=== PATIENT | female | born 1950 | race Caucasian/White ===

== ENCOUNTER 2017-10-29 19:18 | Emergency (ER) | payer OTHER ==
[2017-10-29 19:26] VITALS: BP 123/62; PULSE 79; TEMP 98.8; BMI 45.7
--- NOTE | 2017-10-29 19:46 | PDOC ---
History of Present Illness - General History Source: Patient Exam Limitations: No Limitations - History of Present Illness Initial Comments: 10/29/17 20:21 This is a 66-year-old female who comes in complaining of abdominal pain and vomiting during a bowel prep procedure. Patient is scheduled for colonoscopy tomorrow. In discussion with the patient patient misread her instructions and drank twice as much liquid as she was supposed to. As a result she developed crampy abdominal pain some vomiting. By the time the patient got to the emergency room her abdominal pain and vomiting had resolved and she was asymptomatic. Patient at that point it also had multiple episodes of diarrhea and her stools were clear liquid. Discussed with patient instructions for the rest of the prep and gave her my phone number and told her to call me if she had any concerns or questions. <Annette Duenas I - Last Filed: 10/29/17 20:19> - General History Source: Patient Exam Limitations: No Limitations - History of Present Illness Initial Comments: 10/29/17 20:26 The patient is a 66 year old female with a significant PMH of hypertension who presents to the emergency department with persistent stomach pain and vomiting for 1 day. The patient reports that she is scheduled for a colonoscopy appointment tomorrow morning. She states that she was given some medication to take for her appointment tomorrow. The patient reports that she misread her instructions and drank more of the medication than was directed for her. The patient reports that after drinking the medication she had an onset of stomach pain. She reports associated vomiting and diarrhea. The patient reports having multiple episodes of diarrhea and vomiting prior to arrival to the ED. the patient denies any other symptoms. She denies any chest pain, shortness of breath, headache and dizziness. She denies fever, chills, nausea,constipation or urinary symptoms. The patient denies any other complaints. PAST MEDICAL HISTORY: hypertension PAST SURGICAL HISTORY: no significant history FAMILY HISTORY: no pertinent history SOCIAL HISTORY: Pt lives with family and is employed. MEDICATIONS: reviewed ALLERGIES: As per nursing notes General: No fevers or chills, no weakness, no weight loss HEENT: No change in vision. No sore throat,. No ear pain CardioVascular: No chest pain or shortness of breath Respiratory:No cough, or wheezing. Gastrointestinal: (+)vomiting, diarrhea,stomach pain . No nausea, or constipation, No rectal bleeding Genitourinary: No dysuria, hematuria, or frequency Musculoskeletal: No joint or muscle pain or swelling Neurologic: No headache, vertigo, dizziness or loss of consciousness Psychiatric: nor depression Skin: No rashes or easy bruising Endocrine: no increased thirst or abnormal weight change Allergic: no skin or latex allergy All other systems reviewed and normal GENERAL: The patient is awake, alert, and fully oriented, in no acute distress. HEAD: Normal with no signs of trauma. EYES: Pupils equal, round and reactive to light, extraocular movements intact, sclera anicteric, conjunctiva clear. EXTREMITIES: Normal range of motion, no edema. NEUROLOGICAL: Normal speech, normal gait. PSYCH: Normal mood, normal affect. SKIN: Warm, Dry, normal turgor, no rashes or lesions noted. <Mari De - Last Filed: 10/29/17 20:27> - General Stated Complaint: abd pain Time Seen by Provider: 10/29/17 19:26 Past History - Past Medical History COPD: No HTN: Yes Hypercholesterolemia: Yes - Surgical History Cholecystectomy: Yes - Suicide/Smoking/Psychosocial Hx Smoking History: Never smoked Have you smoked in the past 12 months: No Number of Cigarettes Smoked Daily: 0 Information on smoking cessation initiated: No Hx Alcohol Use: No Drug/Substance Use Hx: No Substance Use Type: None <Annette Duenas I - Last Filed: 10/29/17 20:19> <Mari De - Last Filed: 10/29/17 20:27> - Past Medical History Allergies/Adverse Reactions: Allergies Allergy/AdvReac Type Severity Reaction Status Date / Time No Known Allergies Allergy Verified 12/04/15 12:09 Home Medications: Ambulatory Orders Atenolol [Tenormin -] 50 mg PO DAILY #30 tablet 12/04/15 Atorvastatin Ca [Lipitor] 20 mg PO HS 10/29/17 Ibuprofen 800 mg PO PRN 10/29/17 Omeprazole 40 mg PO DAILY 10/29/17 Valacyclovir HCl [Valtrex -] 1,000 mg PO TID 10/29/17 *Physical Exam - Vital Signs Last Vital Signs Temp Pulse Resp BP Pulse Ox 98.8 F 79 14 123/62 95 10/29/17 19:20 10/29/17 19:20 10/29/17 19:20 10/29/17 19:20 10/29/17 19:20 <Annette Duenas I - Last Filed: 10/29/17 20:19> - Vital Signs Last Vital Signs Temp Pulse Resp BP Pulse Ox 98.8 F 79 14 123/62 95 10/29/17 19:20 10/29/17 19:20 10/29/17 19:20 10/29/17 19:20 10/29/17 19:20 <Mari De - Last Filed: 10/29/17 20:27> *DC/Admit/Observation/Transfer - Discharge Dispostion Decision to Admit order: No <Annette Duenas I - Last Filed: 10/29/17 20:19> - Attestations Scribe Attestion: 10/29/17 20:27 Documentation prepared by Mari De, acting as medical doctor md for Annette Duenas MD. <Mari De - Last Filed: 10/29/17 20:27> Diagnosis at time of Disposition: Abdominal pain, vomiting, and diarrhea - Discharge Dispostion Disposition: HOME Condition at time of disposition: Good - Patient Instructions Additional Instructions: Clear liquids only until midnight tonight at midnight you should he making lites urine. Nothing more to drink after midnight. You may notice that during the night you have some additional clear diarrhea this is normal however it should not be associated with anything more than mild cramping and no vomiting. Tomorrow morning do the 2 fleets enemas as directed at 9:30 in the morning. And go to your colonoscopy at the time you're supposed to go. I will be here all night if you have any additional questions or concerns feel free to call me at [phone].
== END 2017-10-29 20:20 | disposition home or self-care (01) ==
LOC: FER 19:18
DX: R10.9 Unspecified abdominal pain (principal); R11.10 Vomiting, unspecified; R19.7 Diarrhea, unspecified; I10 Essential (primary) hypertension; E78.00 Pure hypercholesterolemia, unspecified
CPT/HCPCS: 99282-25

== ENCOUNTER 2018-02-07 12:38 | Emergency (ER) | payer OTHER ==
--- NOTE | 2018-02-07 12:44 | PDOC ---
History of Present Illness - General Chief Complaint: Respiratory Stated Complaint: COUGH Time Seen by Provider: 02/07/18 12:41 - History of Present Illness Initial Comments: 02/07/18 12:57 67yo female with hx of HTN on atenolol presents to the ED for 2 weeks of cough. Pt saw her PMD - Dr. Jacob Natarajan, and was dx with bronchitis and started on amxoxicillin. Pt states she still has the cough, productive yellow sputum. Pt states the cough is keeping her up at night. Pt was also given an albuterol inhaler, which she did not use at home until today - gave herself 1 puff without relief of the cough. Pt denies f/c. No rhinorrhea or sore throat. CP only when coughing. No sob. No abd pain. No n/v/d. NO dysuria. No other complaints. Still has amoxicillin left. PMhx: HTN PShx: kevin Meds: Atenolol All: IV contrast Past History - Past Medical History Allergies/Adverse Reactions: Allergies Allergy/AdvReac Type Severity Reaction Status Date / Time Iodinated Contrast- Oral and Allergy Verified 02/07/18 13:19 IV Dye CONTRAST DYE Allergy Uncoded 02/07/18 12:39 Home Medications: Ambulatory Orders Atenolol [Tenormin -] 50 mg PO DAILY #30 tablet 12/04/15 Omeprazole 40 mg PO DAILY 10/29/17 Amoxicillin - [Amoxicillin 500mg Capsule -] 500 mg PO BID 02/07/18 Benzonatate [Tessalon Pearls -] 100 mg PO TID PRN #21 capsule 02/07/18 Inhaler, Assist Devices [Space Chamber Plus] 1 each MC QID PRN #1 spacer Prednisone [Deltasone] 40 mg PO DAILY #8 tablet 02/07/18 COPD: No HTN: Yes Hypercholesterolemia: Yes - Surgical History Cholecystectomy: Yes - Suicide/Smoking/Psychosocial Hx Smoking History: Never smoked Have you smoked in the past 12 months: No Number of Cigarettes Smoked Daily: 0 Hx Alcohol Use: No Drug/Substance Use Hx: No Substance Use Type: None Review of Systems - Review of Systems Able to Perform ROS?: Yes Is the patient limited Malaysian proficient: No Constitutional: No: Chills, Fever HEENTM: No: Nose Pain, Nose Congestion, Throat Pain, Throat Swelling Respiratory: Yes: Cough, Productive cough. No: Shortness of Breath, Wheezing Cardiac (ROS): Yes: Chest Pain (only with the cough). No: Irregular Heart Rate , Palpitations ABD/GI: No: Diarrhea, Nausea, Vomiting, Abdominal cramping : No: Burning Musculoskeletal: No: Back Pain Integumentary: No: Rash Neurological: No: Headache, Numbness All Other Systems: Reviewed and Negative *Physical Exam - Vital Signs 02/07/18 13:04 Selected Entries 02/07/18 12:39 Temperature 100.1 F H Pulse Rate 92 H Respiratory 20 Rate Respiratory Normal Depth Respiratory Non-Labored Effort Blood Pressure 146/82 Blood Pressure 103 Mean O2 Sat by Pulse 96 Oximetry (%) Oxygen Delivery Room Air Method Weight 90.718 kg - Physical Exam General Appearance: Yes: Nourished, Appropriately Dressed, Other (dry bronchospastic coughing) HEENT: positive: EOMI, Normal ENT Inspection, Pharynx Normal. negative: Pharyngeal Erythema, Tonsillar Exudate, Tonsillar Erythema, Nasal Congestion, Rhinorrhea, TM Bulging, TM Dull, TM Erythema Neck: positive: Trachea midline, Supple. negative: Tender, Rigid, Stridor Respiratory/Chest: positive: Decreased Breath Sounds. negative: Chest Tender, Crackles, Rhonchi, Wheezing Cardiovascular: positive: Regular Rhythm, Regular Rate, S1, S2. negative: Edema Gastrointestinal/Abdominal: positive: Normal Bowel Sounds, Soft. negative: Guarding, Rebound, Tenderness Musculoskeletal: positive: Normal Inspection. negative: CVA Tenderness Extremity: positive: Normal Capillary Refill, Normal Inspection Integumentary: positive: Normal Color, Dry, Warm Neurologic: positive: nurse discharge planner II-XII NML intact, Fully Oriented, Motor Strength 5/5 , Other (ambulates with a steady gait) Heart Score/ECG Review - ECG Intrepretation Comment:: 02/07/18 13:53 sinus tach at 105, nl axis, nl interval, t wave ivnersions III which are nonspecific Medical Decision Making - Medical Decision Making 02/07/18 13:05 a/p: 67yo female with cough x 2 weeks -no coarse bs on exam, however still with cough despite abx -will obtain cxr -low grade temp, will give tylenol -diminished bs - suspect RAD, will give neb and steroids -will monitor and reassess 02/07/18 13:32 no pna on cxr re-eval: lungs with soft end expiratory wheezing will give another breathing treatment pt does state she feels better 02/07/18 14:00 pt feeling much better lungs cta b/l discussed d/c to home stable for d/c to home sinus tach on ekg but after 2 neb treatments discussed how to take all meds along with space chamber for albuterol pump answered all quetsions disussed follow up with DR. Natarajan this week for re-eval *DC/Admit/Observation/Transfer Diagnosis at time of Disposition: Bronchospastic airway disease - Discharge Dispostion Disposition: HOME Condition at time of disposition: Stable Decision to Admit order: No - Prescriptions Prescriptions: Benzonatate [Tessalon Pearls -] 100 mg PO TID PRN #21 capsule PRN Reason: Cough Inhaler, Assist Devices [Space Chamber Plus] 1 each MC QID PRN #1 spacer PRN Reason: Shortness Of Breath Prednisone [Deltasone] 40 mg PO DAILY #8 tablet - Referrals Referrals: Jacob Natarajan MD [Staff Physician] - - Patient Instructions Printed Discharge Instructions: DI for Cough -- Adult Additional Instructions: Please continue to take your antibiotics to completion. Please make an appointment to see your PMD this week for a follow up visit. Please take the steroids and cough medicine as prescribed. Please drink plenty of fluids when taking all medications. Please return to the ED with any further concerns or complaints. - Post Discharge Activity - Attestations Physician Attestion: 02/07/18 13:37 I, Dr. Pastora Hutchison, DO, attest that this document has been prepared under my direction and personally reviewed by me in its entirety. I further attest, that it accurately reflects all work, treatment, procedures and medical decision -making performed by me.
[2018-02-07 12:49] VITALS: BP 146/82; PULSE 92; TEMP 100.1; BMI 39.0
[2018-02-07] MEDS ORDERED: ALBUTEROL SO4 2.5/IPRATROPIUM 0.5 INH SOL 3 ML VIAL.NEB. NEB ONE ×3 (12:53→13:33)
[2018-02-07] MEDS ORDERED: predniSONE 20 MG TABLET (UD) PO ONE (12:54)
[2018-02-07] MEDS ORDERED: ACETAMINOPHEN 500 MG TABLET (FP) PO ONE (13:09)
--- NOTE | 2018-02-07 18:46 | EKG ---
Test Reason : Blood Pressure : / mmHG Vent. Rate : 105 BPM Atrial Rate : 105 BPM P-R Int : 142 ms QRS Dur : 076 ms QT Int : 350 ms P-R-T Axes : 034 -29 024 degrees QTc Int : 462 ms SINUS TACHYCARDIA NONSPECIFIC ST AND T WAVE ABNORMALITY ABNORMAL ECG WHEN COMPARED WITH ECG OF 06-SEP-2006 08:42, NO SIGNIFICANT CHANGE WAS FOUND Confirmed by YANG SILVEIRA MD ([id number]) on 02/07/2018 6:46:23 PM Referred By: INESSA BARTHOLOMEW Confirmed By:YANG SILVEIRA MD
== END 2018-02-07 14:16 | disposition home or self-care (01) ==
LOC: FER 12:38
PROC: 3E0F7GC Introduction of Other Therapeutic Substance into Respiratory Tract, Via Natural or Artificial Opening (ICD-10-PCS; principal; 2018-02-07)
DX: J45.998 Other asthma (principal); I10 Essential (primary) hypertension
CPT/HCPCS: 71046-TC-FY; 93005; 94640; 99282-25; J7620

== ENCOUNTER 2018-02-10 06:39 | Inpatient (IN) | payer OTHER ==
[2018-02-10 06:55] VITALS: BMI 39.0
[2018-02-10] MEDS ORDERED: ALBUTEROL SO4 2.5/IPRATROPIUM 0.5 INH SOL 3 ML VIAL.NEB. NEB ONE ×4 (07:00→12:23)
--- NOTE | 2018-02-10 07:00 | PDOC ---
History of Present Illness - General Chief Complaint: Respiratory Stated Complaint: COUGH - History of Present Illness Initial Comments: 02/10/18 07:11 67yo female with hx of HTN on atenolol presents for cough. Pt has been treated with amox for the last [address] Natarajan. Pt was seen over the weekend for the cough - productive yellow sputum. No fevers over the weekend. Pt today with a temp 100.7. Pt presents for eval the cough again stating she ran out of her inhaler. Pt with crackles and wheezing on lung exam. Pt denies cp. C/o sob. No abd pain. No n/v/d. NO LE swelling. Pt states the inhaler was working, but she feels sob this AM since running out. PMHx: htn on atenolol Pshx: denies Allergies: IV contrast Past History - Past Medical History Allergies/Adverse Reactions: Allergies Allergy/AdvReac Type Severity Reaction Status Date / Time Iodinated Contrast- Oral and Allergy Verified 02/10/18 06:47 IV Dye CONTRAST DYE Allergy Uncoded 02/07/18 12:39 Home Medications: Ambulatory Orders Atenolol [Tenormin -] 50 mg PO DAILY #30 tablet 12/04/15 Omeprazole 40 mg PO DAILY 10/29/17 Benzonatate [Tessalon Pearls -] 100 mg PO TID PRN #21 capsule 02/07/18 Inhaler, Assist Devices [Space Chamber Plus] 1 each MC QID PRN #1 spacer Prednisone [Deltasone] 40 mg PO DAILY #8 tablet 02/07/18 Albuterol Sulfate Inhaler - [Ventolin HFA Inhaler -] 2 inh PO Q6H PRN #1 inh levoFLOXacin [Levaquin] 750 mg PO DAILY #7 tab 02/10/18 COPD: No HTN: Yes Hypercholesterolemia: Yes - Surgical History Cholecystectomy: Yes - Suicide/Smoking/Psychosocial Hx Smoking History: Never smoked Have you smoked in the past 12 months: No Number of Cigarettes Smoked Daily: 0 Information on smoking cessation initiated: No Hx Alcohol Use: No Drug/Substance Use Hx: No Substance Use Type: None Review of Systems - Review of Systems Able to Perform ROS?: Yes Is the patient limited Norwegian proficient: No Constitutional: Yes: Fever. No: Chills HEENTM: No: Nose Congestion, Throat Pain Respiratory: Yes: Cough, Shortness of Breath, Wheezing, Productive cough Cardiac (ROS): No: Chest Pain, Irregular Heart Rate, Palpitations ABD/GI: No: Diarrhea, Nausea, Vomiting, Abdominal cramping : No: Burning, Dysuria Integumentary: No: Rash Neurological: No: Headache, Numbness, Paresthesia All Other Systems: Reviewed and Negative *Physical Exam - Vital Signs Last Vital Signs Temp Pulse Resp BP Pulse Ox 100.7 F H 87 20 155/83 100 02/10/18 06:56 02/10/18 06:51 02/10/18 06:51 02/10/18 06:51 02/10/18 06:51 - Physical Exam General Appearance: Yes: Nourished, Appropriately Dressed. No: Apparent Distress HEENT: positive: EOMI, Normal Voice, Pharynx Normal. negative: Rhinorrhea, Sinus Tenderness Neck: positive: Supple. negative: Tender Respiratory/Chest: positive: Crackles, Wheezing. negative: Chest Tender Cardiovascular: positive: Regular Rhythm, Regular Rate, S1, S2. negative: Edema Gastrointestinal/Abdominal: positive: Normal Bowel Sounds, Soft. negative: Guarding, Rebound, Tenderness Musculoskeletal: positive: Normal Inspection. negative: Decreased Range of Motion Extremity: positive: Normal Capillary Refill, Normal Inspection, Normal Range of Motion. negative: Calf Tenderness Integumentary: positive: Normal Color, Dry, Warm Neurologic: positive: Fully Oriented, Alert, Motor Strength 5/5 Heart Score/ECG Review - ECG Intrepretation Comment:: 02/10/18 07:17 sinus at 88, nl axis, nl interval, t wave inversions iii which are nonspecific ED Treatment Course - LABORATORY CBC & Chemistry Diagram: 02/10/18 07:53 02/10/18 07:53 Medical Decision Making - Medical Decision Making 02/10/18 07:15 a/p: 67yo female with productive cough - wheezing/crackles -will send labs -ekg -cxr -blood cultures -running a fever today -will given nebs, tylenol, ivf hydration -will most likely need to change abx -pt given a neb upon arrival and already feels better -pt is nontoxic in appearance, speaking in full sentences 02/10/18 07:55 re-eval: after 2nd neb pt states feeling better lungs cta 02/10/18 08:22 cxr without pna - mild atelectasis will change abx to levaquin to cover strep and atypicals will give rx for levaquin and albuterol still has steroids at home 02/10/18 10:21 mildly elevated lactate and elevated BNP with sob/wheezing will place in obs for iv abx and further eval of elevated bnp, sob, cough cultures pending 02/10/18 10:32 Dr. Natarajan is covered by Dr. gooden who does not admit at [facility] microblog sent to [facility] 02/10/18 11:09 case discussed with [facility] who accepts pt to service *DC/Admit/Observation/Transfer Diagnosis at time of Disposition: Bronchospastic airway disease, Fever, Elevated lactic acid level - Discharge Dispostion Condition at time of disposition: Fair Decision to Admit order: Yes - Prescriptions Prescriptions: Albuterol Sulfate Inhaler - [Ventolin HFA Inhaler -] 2 inh PO Q6H PRN #1 inh PRN Reason: Shortness Of Breath levoFLOXacin [Levaquin] 750 mg PO DAILY #7 tab - Referrals Referrals: Jacob Natarajan MD [Primary Care Provider] - Pratik Stuart MD [Staff Physician] - - Patient Instructions Printed Discharge Instructions: DI for Acute Bronchitis Additional Instructions: Please use the spacer with the albuterol pump. Please follow up with your PMD in 2 days. Please make an appointment to see the hat and cap drying room attendant. Please return to the ED with any further concerns or complaints. Please take tylenol or motrin as needed for the fever. Please take the antibiotics to completion. - Post Discharge Activity - Attestations Physician Attestion: 02/10/18 08:26 I, Dr. Pastora Hutchison, DO, attest that this document has been prepared under my direction and personally reviewed by me in its entirety. I further attest, that it accurately reflects all work, treatment, procedures and medical decision -making performed by me.
[2018-02-10] MEDS ORDERED: ACETAMINOPHEN 500 MG TABLET (FP) PO ONE (07:01)
[2018-02-10] MEDS ORDERED: SODIUM CHLORIDE 0.9% 1000 ML INFUS.BAG IV ONE (07:05)
[2018-02-10] MEDS ORDERED: ACETAMINOPHEN 500 MG TABLET (FP) ONE (07:05)
[2018-02-10 08:12] LABS: BASO % 0.4 % (0-2.0); EOS % 0.3 % (0-4.5); HEMOGLOBIN 10.8 GM/dl (10.7-15.3); LYMPH % 32.4 % (8-40); MCH 33.2 pg (25.7-33.7); MCHC 32.7 g/dl (32.0-36.0); MEAN CELL VOLUME 101.4 fl (80-96); MEAN PLT VOLUME 8.8 fl (7.5-11.1); MONO % 7.6 % (3.8-10.2); NEUT % 59.3 % (42.8-82.8); PLATELET COUNT 147 K/MM3 (134-434); RBC 3.25 M/mm3 (3.60-5.2); RDW 13.6 % (11.6-15.6); WHITE BLOOD COUNT 5.7 K/mm3 (4.0-10.8)
[2018-02-10 08:22] LABS: ALBUMIN 3.4 g/dl (3.5-5.0); ALK PHOS 77 U/L (32-92); ANION GAP 8 MMOL/L (8-16); BILIRUBIN,TOTAL 0.8 mg/dl (0.2-1.0); BLOOD UREA NITROGEN 20 mg/dl (7-18); CALCIUM 8.3 mg/dl (8.4-10.2); CHLORIDE 103 mmol/L (98-107); CO2 25 mmol/L (22-28); CREATININE 0.9 mg/dl (0.6-1.3); GLUCOSE,RANDOM 91 mg/dl (74-106); MAGNESIUM 1.7 mg/dL (1.8-2.4); POTASSIUM 3.4 mmol/L (3.5-5.1); SGOT/AST 48 U/L (10-42); SGPT/ALT 38 U/L (10-40); SODIUM 136 mmol/L (136-145)
[2018-02-10] MEDS ORDERED: MAGNESIUM SULF 50% (8.12 MEQ/2 ML-1 GM VIAL) IVPB ONE (08:26)
[2018-02-10] MEDS ORDERED: MAGNESIUM 1GM/D5W - 1 GM/100 ML IVPB IVPB ONE (09:49)
--- NOTE | 2018-02-10 11:29 | HP ---
CHIEF COMPLAINT: persistent cough and wheezing PCP: Dr Arabella Natarajan HISTORY OF PRESENT ILLNESS: patient is a 67 y/o morbidly obese female with a past medical history of hypertension. Patient reports within the past 2 weeks she has ongoing cough with shortness of breath. She was evaluated by her primary care physician, Dr. Natarajan and completed a full course of Amoxicillin. She reports persistent cough with wheezing and was evaluated in the emergency department on 02/07/2018 patient was started on Tessalon Perles and prednisone. She reports ongoing cough with wheezing and sought evaluation in the emergency department. Of note patient does report tactile fevers and fatigue. Patient denies any recent sick contacts or travel. ER course was notable for: (1)Chest x-ray,No infiltrate or effusion noted, atelectasis noted to left face (2)MAXIMUM TEMPERATURE 100.7 (3) combivent nebulizer x3 Wheezing unresolved Recent Travel: none as per patient PAST MEDICAL HISTORY:hypertension PAST SURGICAL HISTORY:cholestectomy Social History: resides at home alone Smoking: none Alcohol:none Drugs: none Family History: father: unknown mother: CVA Allergies Iodinated Contrast- Oral and IV Dye Allergy (Verified 02/10/18 06:47) CONTRAST DYE Allergy (Uncoded 02/07/18 12:39) HOME MEDICATIONS: Home Medications Medication Instructions Recorded Atenolol [Tenormin -] 50 mg PO DAILY #30 tablet 12/04/15 Omeprazole 40 mg PO DAILY 10/29/17 Benzonatate [Tessalon Pearls -] 100 mg PO TID PRN #21 capsule 02/07/18 Inhaler, Assist Devices [Space 1 each MC QID PRN #1 spacer 02/07/18 Chamber Plus] Prednisone [Deltasone] 40 mg PO DAILY #8 tablet 02/07/18 Albuterol Sulfate Inhaler - 2 inh PO Q6H PRN #1 inh 02/10/18 [Ventolin HFA Inhaler -] levoFLOXacin [Levaquin] 750 mg PO DAILY #7 tab 02/10/18 REVIEW OF SYSTEMS CONSTITUTIONAL: Absent: fever, chills, diaphoresis, generalized weakness, malaise, loss of appetite, weight change HEENT: Absent: rhinorrhea, nasal congestion, throat pain, throat swelling, difficulty swallowing, mouth swelling, ear pain, eye pain, visual changes CARDIOVASCULAR: Absent: chest pain, syncope, palpitations, irregular heart rate, lightheadedness , peripheral edema RESPIRATORY: Present: cough, shortness of breath, dyspnea with exertion, wheezing Absent: orthopnea,, stridor, hemoptysis GASTROINTESTINAL: Absent: abdominal pain, abdominal distension, nausea, vomiting, diarrhea, constipation, melena, hematochezia GENITOURINARY: Absent: dysuria, frequency, urgency, hesitancy, hematuria, flank pain, genital pain MUSCULOSKELETAL: Absent: myalgia, arthralgia, joint swelling, back pain, neck pain SKIN: Absent: rash, itching, pallor HEMATOLOGIC/IMMUNOLOGIC: Absent: easy bleeding, easy bruising, lymphadenopathy, frequent infections ENDOCRINE: Absent: unexplained weight gain, unexplained weight loss, heat intolerance, cold intolerance NEUROLOGIC: Absent: headache, focal weakness or paresthesias, dizziness, unsteady gait, seizure, mental status changes, bladder or bowel incontinence PSYCHIATRIC: Absent: anxiety, depression, suicidal or homicidal ideation, hallucinations. PHYSICAL EXAMINATION Vital Signs - 24 hr 02/10/18 02/10/18 06:51 06:56 Temperature 98.7 F 100.7 F H Pulse Rate 87 Respiratory 20 Rate Blood Pressure 155/83 O2 Sat by Pulse 100 Oximetry (%) GENERAL: Awake, alert, and fully oriented, in no acute distress. HEAD: Normal with no signs of trauma. EYES: Pupils equal, round and reactive to light, extraocular movements intact, sclera anicteric, conjunctiva clear. No lid lag. EARS, NOSE, THROAT: Ears normal, nares patent, oropharynx clear without exudates. Moist mucous membranes. NECK: Normal range of motion, supple without lymphadenopathy, JVD, or masses. LUNGS: Breath sounds equal, clear to auscultation bilaterally, diminished to bases, Persistent moist cough noted, No wheezes, and no crackles. No accessory muscle use. HEART: Regular rate and rhythm, normal S1 and S2 without murmur, rub or gallop. ABDOMEN: Soft, nontender, not distended, normoactive bowel sounds, no guarding, no rebound, no masses. No hepatomegaly or splenomegaly. MUSCULOSKELETAL: Normal range of motion at all joints. No bony deformities or tenderness. No CVA tenderness. UPPER EXTREMITIES: 2+ pulses, warm, well-perfused. No cyanosis. No clubbing. No peripheral edema. LOWER EXTREMITIES: 2+ pulses, warm, well-perfused. No calf tenderness. No peripheral edema. NEUROLOGICAL: Cranial nerves II-XII intact. Normal speech. Normal gait. PSYCHIATRIC: Cooperative. Good eye contact. Appropriate mood and affect. SKIN: Warm, dry, normal turgor, no rashes or lesions noted, normal capillary refill. Laboratory Results - last 24 hr 02/10/18 02/10/18 02/10/18 07:53 07:53 07:53 WBC 5.7 RBC 3.25 L Hgb 10.8 Hct 33.0 MCV 101.4 H MCH 33.2 MCHC 32.7 RDW 13.6 Plt Count 147 MPV 8.8 Absolute Neuts (auto) 3.5 Neutrophils % 59.3 Lymphocytes % 32.4 Monocytes % 7.6 Eosinophils % 0.3 Basophils % 0.4 Sodium 136 Potassium 3.4 L Chloride 103 Carbon Dioxide 25 Anion Gap 8 BUN 20 H Creatinine 0.9 Creat Clearance w eGFR > 60 Random Glucose 91 D Lactic Acid 2.1 H Calcium 8.3 L Magnesium 1.7 L Total Bilirubin 0.8 AST 48 H D ALT 38 D Alkaline Phosphatase 77 Creatine Kinase Troponin I B-Natriuretic Peptide Total Protein 8.0 Albumin 3.4 L 02/10/18 02/10/18 02/10/18 07:53 07:53 07:55 WBC RBC Hgb Hct MCV MCH MCHC RDW Plt Count MPV Absolute Neuts (auto) Neutrophils % Lymphocytes % Monocytes % Eosinophils % Basophils % Sodium Potassium Chloride Carbon Dioxide Anion Gap BUN Creatinine Creat Clearance w eGFR Random Glucose Lactic Acid Calcium Magnesium Total Bilirubin AST ALT Alkaline Phosphatase Creatine Kinase 57 Troponin I < 0.03 B-Natriuretic Peptide 649.06 H Total Protein Albumin ASSESSMENT/PLAN: 1) pulm bronchospasm - Last dose of prednisone was yesterday evening will start Solu-Medrol with taper as appropriate - Chest x-ray reviewed no infiltrates noted, will order a CT of chest - Low-grade temp noted no leukocytosis will continue empiric Levaquin - start standing duonebs - incentive spirmoter and peak flow - appreciate Pulmonary input 2) cardiology hypertension - continue home dose Atenolol, Blood pressure above goal patient reports she has not taken her medication this morning or yesterday restart home dose of atenolol - pending echo - vital signs q4h f/e/n -low Sodium cholesterol diet - replete electrolytes prn ppx - oob - scd - ppi dispo: patient requires inpatient admission Visit type - Emergency Visit Emergency Visit: Yes ED Registration Date: 02/10/18 Care time: The patient presented to the Emergency Department on the above date and was hospitalized for further evaluation of their emergent condition. - New Patient This patient is new to me today: Yes Date on this admission: 02/11/18 - Critical Care Critical Care patient: No Hospitalist Screening - Colonoscopy Questionnaire Colonoscopy Questionnaire: Colonoscopy Questionnaire - Patient: 50 - 75 years old and never had a screening colonoscopy: No History of colon or rectal polyps, or CA: No History of IBD, Crohn's disease or UC: No History of abdominal radiation therapy as a child: No - Relative: 1 with colon or rectal CA, or polyps at age 60 or younger: No Colon or rectal CA diagnosed at age 45 or younger: No Multiple relatives with colon or rectal CA: No - Outcome: Screening Result: Negative Screen
[2018-02-10] MEDS ORDERED: ACETAMINOPHEN 325 MG TABLET (FP) PO PRN (11:36)
[2018-02-10] MEDS ORDERED: PANTOPRAZOLE 40 MG TABLET (FP) ONE (12:23)
[2018-02-10] MEDS: ALBUTEROL SO4 2.5/IPRATROPIUM 0.5 INH SOL 3 ML VIAL.NEB. NEB SCH ×3 (12:27→21:36)
[2018-02-10] MEDS: PANTOPRAZOLE 40 MG TABLET (FP) PO SCH (12:27)
[2018-02-10] MEDS ORDERED: POTASSIUM CHLORIDE TABS 20 MEQ TABLET.ER (FP) PO ONE (13:45)
[2018-02-10] MEDS: methylPREDNISolone NA SUCC 40 MG/1 ML VIAL IVPUSH SCH ×2 (14:22→21:36)
[2018-02-10] MEDS: ATENOLOL 50 MG TABLET (FP) PO SCH (14:23)
[2018-02-10] MEDS: guaiFENesin 600 MG TABLET.ER (FP) PO SCH (21:35)
[2018-02-10] MEDS: ZOLPIDEM TARTRATE 5 MG TABLET PO PRN (21:36)
[2018-02-11] MEDS: methylPREDNISolone NA SUCC 40 MG/1 ML VIAL IVPUSH SCH ×4 (05:51→20:50)
[2018-02-11 08:18] LABS: BASO % 0.1 % (0-2.0); HEMATOCRIT 32.3 % (32.4-45.2); HEMOGLOBIN 10.7 GM/dl (10.7-15.3); LYMPH % 21.3 % (8-40); MCH 33.3 pg (25.7-33.7); MCHC 33.2 g/dl (32.0-36.0); MEAN CELL VOLUME 100.4 fl (80-96); MEAN PLT VOLUME 9.3 fl (7.5-11.1); MONO % 5.2 % (3.8-10.2); NEUT % 73.4 % (42.8-82.8); PLATELET COUNT 152 K/MM3 (134-434); RBC 3.22 M/mm3 (3.60-5.2); RDW 13.5 % (11.6-15.6)
[2018-02-11 08:41] LABS: ALBUMIN 3.1 g/dl (3.5-5.0); ALK PHOS 79 U/L (32-92); ANION GAP 11 MMOL/L (8-16); BILIRUBIN,TOTAL 0.9 mg/dl (0.2-1.0); BLOOD UREA NITROGEN 24 mg/dl (7-18); CALCIUM 8.6 mg/dl (8.4-10.2); CHLORIDE 100 mmol/L (98-107); CO2 25 mmol/L (22-28); CREATININE 0.9 mg/dl (0.6-1.3); GLUCOSE,RANDOM 147 mg/dl (74-106); MAGNESIUM 2.2 mg/dL (1.8-2.4); PHOSPHOROUS 3.8 mg/dl (2.5-4.6); POTASSIUM 4.5 mmol/L (3.5-5.1); SGOT/AST 43 U/L (10-42); SGPT/ALT 38 U/L (10-40); SODIUM 136 mmol/L (136-145); TOT PROT 8.2 g/dl (6.4-8.3)
[2018-02-11] MEDS: ALBUTEROL SO4 2.5/IPRATROPIUM 0.5 INH SOL 3 ML VIAL.NEB. NEB SCH ×2 (09:02→12:10)
[2018-02-11] MEDS: ATENOLOL 50 MG TABLET (FP) PO SCH (09:44)
[2018-02-11] MEDS: PANTOPRAZOLE 40 MG TABLET (FP) PO SCH (09:44)
[2018-02-11] MEDS: guaiFENesin 600 MG TABLET.ER (FP) PO SCH ×2 (09:44→21:27)
[2018-02-11] MEDS: BUDESONIDE/FORMETEROL FUMARATE 80/4.5 mcg INHALER IH SCH ×2 (12:10→21:27)
[2018-02-11] MEDS: IPRATROPIUM BR 0.02% 0.5 MG/2.5 ML VIAL.NEB. NEB SCH ×3 (13:10→20:50)
[2018-02-11] MEDS ORDERED: ALBUTEROL SO4 0.083% IH SOL 2.5 MG/3 ML VIAL.NEB. NEB PRN (13:58)
--- NOTE | 2018-02-11 13:59 | PN ---
Physical Exam: SUBJECTIVE: Patient seen and examined, reports ongoing cough, reports palpations after albuterol nebulizer OBJECTIVE: patient is a 67 y/o morbidly obese female with a past medical history of hypertension. patient was admitted for the emergency department for emergent condition. Vital Signs Period Temp Pulse Resp BP Sys/Norton Pulse Ox Last 24 Hr 98.2 F-98.6 F 69-88 16-19 104-139/48-64 94-95 GENERAL: The patient is awake, alert, and fully oriented, in no acute distress. HEAD: Normal with no signs of trauma. EYES: PERRL, extraocular movements intact, sclera anicteric, conjunctiva clear. No ptosis. ENT: Ears normal, nares patent, oropharynx clear without exudates, moist mucous membranes. NECK: Trachea midline, full range of motion, supple. LUNGS: Breath sounds equal,persistent moist cough, bilateral lower lobe inspiratory wheeze, no crackles, no accessory muscle use. HEART: Regular rate and rhythm, S1, S2 without murmur, rub or gallop. ABDOMEN: Soft, nontender, nondistended, normoactive bowel sounds, no guarding, no rebound, no hepatosplenomegaly, no masses. EXTREMITIES: 2+ pulses, warm, well-perfused, no edema. NEUROLOGICAL: Cranial nerves II through XII grossly intact. Normal speech, gait not observed. PSYCH: Normal mood, normal affect. SKIN: Warm, dry, normal turgor, no rashes or lesions noted Laboratory Results - last 24 hr 02/11/18 02/11/18 07:53 07:53 WBC 4.0 RBC 3.22 L Hgb 10.7 Hct 32.3 L MCV 100.4 H MCH 33.3 MCHC 33.2 RDW 13.5 Plt Count 152 MPV 9.3 Absolute Neuts (auto) 3.0 Neutrophils % 73.4 Lymphocytes % 21.3 Monocytes % 5.2 Eosinophils % 0.0 Basophils % 0.1 Sodium 136 Potassium 4.5 D Chloride 100 Carbon Dioxide 25 Anion Gap 11 BUN 24 H Creatinine 0.9 Creat Clearance w eGFR > 60 Random Glucose 147 H D Calcium 8.6 Phosphorus 3.8 Magnesium 2.2 Total Bilirubin 0.9 AST 43 H ALT 38 Alkaline Phosphatase 79 Total Protein 8.2 Albumin 3.1 L Vitamin B12 312 Active Medications Generic Name Dose Route Start Last Admin Trade Name Freq PRN Reason Stop Dose Admin Acetaminophen 650 mg 02/10/18 11:36 Tylenol - PO Q4H PRN FEVER Atenolol 50 mg 02/10/18 11:45 02/11/18 09:44 Tenormin - PO 50 mg DAILY DAVID Administration Budesonide/Formoterol Fumarate 2 puff 02/11/18 11:15 02/11/18 12:10 Symbicort 80/4.5mcg - IH 2 puff BID DAVID Administration Guaifenesin 600 mg 02/10/18 22:00 02/11/18 09:44 Mucinex - PO 600 mg BID DAVID Administration Levofloxacin 750 mg in 150 mls @ 100 mls/hr 02/11/18 10:00 02/11/18 09:43 Levaquin 750 Mg Premixed Ivpb - IVPB 100 mls/hr DAILY DAVID Administration Protocol Ipratropium [place] 1 amp 02/11/18 13:00 Atrovent 0.02% Nebulizer - NEB RQID DAVID Methylprednisolone Sodium Succinate 40 mg 02/11/18 11:15 02/11/18 12:10 Solu-Medrol - IVPUSH 40 mg Q6H-IV DAVID Administration Pantoprazole Sodium 40 mg 02/10/18 11:45 02/11/18 09:44 Protonix - PO 40 mg DAILY DAVID Administration Zolpidem Tartrate 5 mg 02/10/18 22:00 02/10/18 21:36 Ambien - PO 5 mg HS PRN Administration INSOMNIA Microbiology 02/10/18 08:25 Blood - Peripheral Venous Blood Culture - Preliminary NO GROWTH OBTAINED AFTER 24 HOURS, INCUBATION TO CONTINUE FOR 4 DAYS. 02/10/18 07:53 Blood - Peripheral Venous Blood Culture - Preliminary NO GROWTH OBTAINED AFTER 24 HOURS, INCUBATION TO CONTINUE FOR 4 DAYS. imaging Chest x-ray no infiltrates and no effusions noted CT of chest, bibasilar atelectasis ASSESSMENT/PLAN: 1) pulm bronchospasm - Will increase Solu-Medrol to every 6 hours - Patient is afebrile, no leukocytosis will continue empiric Levaquin - will change duonebs to atrovent standing secondary to palpations with albuterol prn - incentive spirmoter and peak flow - appreciate Pulmonary input 2) cardiology hypertension - continue home dose Atenolol, Blood pressure at goal - pending echo - vital signs q4h f/e/n -low Sodium cholesterol diet - replete electrolytes prn ppx - oob - scd - ppi dispo: patient requires inpatient admission Visit type - Emergency Visit Emergency Visit: Yes ED Registration Date: 02/10/18 Care time: The patient presented to the Emergency Department on the above date and was hospitalized for further evaluation of their emergent condition. - New Patient This patient is new to me today: No - Critical Care Critical Care patient: No - Discharge Referral [facility]erred to [facility] Med P.[facility] No
--- NOTE | 2018-02-11 16:46 | ECHO ---
Name: RICH MONCADA Exam:Adult Echocardiogram Study Date: 02/11/2018 12:41 PM Age: 67 yrs Reason For Study: DYSPNEA UPON EXERTION Height: 60 in Weight: 201 lb BSA: 1.9 m2 MMode/2D Measurements & Calculations IVSd: 1.0 cm Ao root diam: 2.8 cm LVIDd: 4.4 cm LA dimension: 3.9 cm LVIDs: 2.9 cm LVPWd: 1.0 cm EDV(Teich): 86.8 ml ESV(Teich): 31.6 ml Doppler Measurements & Calculations MV E max cata: 75.6 cm/sec MV A max cata: 85.8 cm/sec MV dec slope: 250.5 cm/sec2 MV E/A: 0.88 TR max cata: 266.0 cm/sec PI end-d cata: 96.8 cm/sec TR max P.4 mmHg Procedure A two-dimensional transthoracic echocardiogram with color flow and Doppler was performed. Left Ventricle The left ventricular size, thickness and function are normal. The left ventricular ejection fraction is normal. E/A reversal consistent with but not diagnostic of poor LV compliance. The left ventricular w all motion is normal. Right Ventricle The right ventricle is not well visualized. Atria Borderline left atrial enlargement. Borderline right atrial enlargement. Mitral Valve There is mild mitral valve thickening. There is no mitral valve stenosis. There is trace to mild mitr al regurgitation. Tricuspid Valve The tricuspid valve is not well visualized. There is no tricuspid stenosis. There is Trace to mild tr icuspid regurgitation. Right ventricular systolic pressure is elevated at 30-40mmHg. Aortic Valve The aortic valve is normal in structure and function. No hemodynamically significant valvular aortic stenosis. No aortic regurgitation is present. Pulmonic Valve The pulmonic valve is not well visualized. There is no pulmonic valvular stenosis. Mild pulmonic valv ular regurgitation. Great Vessels The aortic root is normal size. Pericardium/Pleura There is no pericardial effusion. Interpretation Summary The left ventricular size, thickness and function are normal The left ventricular ejection fraction is normal. The left ventricular wall motion is normal. Mild pulmonic valvular regurgitation. E/A reversal consistent with but not diagnostic of poor LV compliance Borderline left atrial enlargement. Borderline right atrial enlargement. The right ventricle is not well visualized. There is trace to mild mitral regurgitation. There is Trace to mild tricuspid regurgitation. Right ventricular systolic pressure is elevated at 30-40mmHg. MD Lamonte Love 02/11/2018 02:46 PM
--- NOTE | 2018-02-11 17:49 | PN ---
Progress Note (short form) - Note Progress Note: PULMONARY CONSULTATION DICTATED 02/11/18 IMP ASTHMATIC BRONCHITIS SECONDARY TO URI DIASTOLIC DYSFUNCTION HTN ANEMIA MILD PULMONARY HTN SUSPECTED OSAS ELEVATED LACTATE LEVEL PLAN IV STEROIDS INHALED BRONCHODILATORS O2 ABX MONITOR PEAK FLOW TREND LACTATE SLEEP STUDIES OUTPATIENT DR EDMOND Problem List - Problems (1) Acute asthmatic bronchitis Code(s): J45.909 - UNSPECIFIED ASTHMA, UNCOMPLICATED (2) Bronchospastic airway disease Code(s): J98.09 - OTHER DISEASES OF BRONCHUS, NOT ELSEWHERE CLASSIFIED (3) Elevated lactic acid level Code(s): R79.89 - OTHER SPECIFIED ABNORMAL FINDINGS OF BLOOD CHEMISTRY (4) Fever Code(s): R50.9 - FEVER, UNSPECIFIED (5) High blood pressure Code(s): I10 - ESSENTIAL (PRIMARY) HYPERTENSION Qualifiers: Hypertension type: essential hypertension Qualified Code(s): I10 - Essential (primary) hypertension (6) Pulmonary HTN Code(s): I27.20 - PULMONARY HYPERTENSION, UNSPECIFIED
[2018-02-11] MEDS: ZOLPIDEM TARTRATE 5 MG TABLET PO PRN (21:45)
[2018-02-12] MEDS: methylPREDNISolone NA SUCC 40 MG/1 ML VIAL IVPUSH SCH ×4 (02:22→17:24)
--- NOTE | 2018-02-12 07:14 | PN ---
Progress Note, Physician History of Present Illness: pulmonary alert,feeling better,less cough,less congestion - Current Medication List Current Medications: Active Medications Acetaminophen (Tylenol -) 650 mg PO Q4H PRN PRN Reason: FEVER Albuterol Sulfate (Ventolin 0.083% Nebulizer Soln -) 1 amp NEB Q4H PRN PRN Reason: SHORT OF BREATH/WHEEZING Atenolol (Tenormin -) 50 mg PO DAILY [facility] Last Admin: 02/11/18 09:44 Dose: 50 mg Budesonide/Formoterol Fumarate (Symbicort 80/4.5mcg -) 2 puff IH BID [facility] Last Admin: 02/11/18 21:27 Dose: 2 puff Guaifenesin (Mucinex -) 600 mg PO BID [facility] Last Admin: 02/11/18 21:27 Dose: 600 mg Levofloxacin (Levaquin 750 Mg Premixed Ivpb -) 750 mg in 150 mls @ 100 mls/hr IVPB DAILY [facility]; Protocol Last Admin: 02/11/18 09:43 Dose: 100 mls/hr Ipratropium [place] (Atrovent 0.02% Nebulizer -) 1 amp NEB RQID [facility] Last Admin: 02/11/18 20:50 Dose: 1 amp Methylprednisolone Sodium Succinate (Solu-Medrol -) 40 mg IVPUSH Q6H-IV [facility] Last Admin: 02/12/18 02:22 Dose: 40 mg Pantoprazole Sodium (Protonix -) 40 mg PO DAILY [facility] Last Admin: 02/11/18 09:44 Dose: 40 mg Zolpidem Tartrate (Ambien -) 5 mg PO HS PRN PRN Reason: INSOMNIA Last Admin: 02/11/18 21:45 Dose: 5 mg - Objective Vital Signs: Vital Signs Temperature 98.5 F 02/12/18 06:00 Pulse Rate 69 02/12/18 06:00 Respiratory Rate 18 02/12/18 06:00 Blood Pressure 119/66 02/12/18 06:00 O2 Sat by Pulse Oximetry (%) 93 L 02/12/18 06:00 Constitutional: Yes: Well Nourished, Calm Eyes: Yes: WNL HENT: Yes: WNL Neck: Yes: WNL Cardiovascular: Yes: Regular Rate and Rhythm, S1, S2 Respiratory: Yes: Wheezes (less wheezes nikkie) Gastrointestinal: Yes: Normal Bowel Sounds, Soft Extremities: Yes: WNL Edema: No Labs: CBC, BMP Problem List - Problems (1) Acute asthmatic bronchitis Code(s): J45.909 - UNSPECIFIED ASTHMA, UNCOMPLICATED (2) Bronchospastic airway disease Code(s): J98.09 - OTHER DISEASES OF BRONCHUS, NOT ELSEWHERE CLASSIFIED (3) Elevated lactic acid level Code(s): R79.89 - OTHER SPECIFIED ABNORMAL FINDINGS OF BLOOD CHEMISTRY (4) Fever Code(s): R50.9 - FEVER, UNSPECIFIED (5) High blood pressure Code(s): I10 - ESSENTIAL (PRIMARY) HYPERTENSION Qualifiers: Hypertension type: essential hypertension Qualified Code(s): I10 - Essential (primary) hypertension (6) Pulmonary HTN Code(s): I27.20 - PULMONARY HYPERTENSION, UNSPECIFIED Assessment/Plan IMP ASTHMATIC BRONCHITIS SECONDARY TO URI DIASTOLIC DYSFUNCTION HTN ANEMIA MILD PULMONARY HTN SUSPECTED OSAS ELEVATED LACTATE LEVEL PLAN IV STEROIDS SAME DOSE INHALED BRONCHODILATORS O2 ABX MONITOR PEAK FLOW TREND LACTATE SLEEP STUDIES OUTPATIENT DR EDMOND Problem List - Problems (1) Acute asthmatic bronchitis Code(s): J45.909 - UNSPECIFIED ASTHMA, UNCOMPLICATED (2) Bronchospastic airway disease Code(s): J98.09 - OTHER DISEASES OF BRONCHUS, NOT ELSEWHERE CLASSIFIED (3) Elevated lactic acid level Code(s): R79.89 - OTHER SPECIFIED ABNORMAL FINDINGS OF BLOOD CHEMISTRY (4) Fever Code(s): R50.9 - FEVER, UNSPECIFIED (5) High blood pressure Code(s): I10 - ESSENTIAL (PRIMARY) HYPERTENSION Qualifiers: Hypertension type: essential hypertension Qualified Code(s): I10 - Essential (primary) hypertension (6) Pulmonary HTN Code(s): I27.20 - PULMONARY HYPERTENSION, UNSPECIFIED
[2018-02-12] MEDS: IPRATROPIUM BR 0.02% 0.5 MG/2.5 ML VIAL.NEB. NEB SCH ×4 (08:23→20:52)
--- NOTE | 2018-02-12 08:26 | PN ---
Physical Exam: SUBJECTIVE: Patient seen and examined, patient reports feeling much improved. OBJECTIVE: patient is a 67 y/o morbidly obese female with a past medical history of hypertension. patient was admitted for the emergency department for acute bronchospasm. Vital Signs Period Temp Pulse Resp BP Sys/Norton Pulse Ox Last 24 Hr 97.8 F-98.5 F 59-72 18-18 112-152/54-71 93-97 GENERAL: The patient is awake, alert, and fully oriented, in no acute distress. HEAD: Normal with no signs of trauma. EYES: PERRL, extraocular movements intact, sclera anicteric, conjunctiva clear. No ptosis. ENT: Ears normal, nares patent, oropharynx clear without exudates, moist mucous membranes. NECK: Trachea midline, full range of motion, supple. LUNGS: Breath sounds equal, clear to auscultation bilaterally, mild cough, diminished to bases, no wheezes, no crackles, no accessory muscle use. HEART: Regular rate and rhythm, S1, S2 without murmur, rub or gallop. ABDOMEN: Soft, nontender, nondistended, normoactive bowel sounds, no guarding, no rebound, no hepatosplenomegaly, no masses. EXTREMITIES: 2+ pulses, warm, well-perfused, no edema. NEUROLOGICAL: Cranial nerves II through XII grossly intact. Normal speech, gait not observed. PSYCH: Normal mood, normal affect. SKIN: Warm, dry, normal turgor, no rashes or lesions noted Laboratory Results - last 24 hr 02/11/18 02/11/18 07:53 07:53 WBC 4.0 RBC 3.22 L Hgb 10.7 Hct 32.3 L MCV 100.4 H MCH 33.3 MCHC 33.2 RDW 13.5 Plt Count 152 MPV 9.3 Absolute Neuts (auto) 3.0 Neutrophils % 73.4 Lymphocytes % 21.3 Monocytes % 5.2 Eosinophils % 0.0 Basophils % 0.1 Sodium 136 Potassium 4.5 D Chloride 100 Carbon Dioxide 25 Anion Gap 11 BUN 24 H Creatinine 0.9 Creat Clearance w eGFR > 60 Random Glucose 147 H D Calcium 8.6 Phosphorus 3.8 Magnesium 2.2 Total Bilirubin 0.9 AST 43 H ALT 38 Alkaline Phosphatase 79 Total Protein 8.2 Albumin 3.1 L Vitamin B12 312 Active Medications Generic Name Dose Route Start Last Admin Trade Name Freq PRN Reason Stop Dose Admin Acetaminophen 650 mg 02/10/18 11:36 Tylenol - PO Q4H PRN FEVER Albuterol Sulfate 1 amp 02/11/18 13:58 Ventolin 0.083% Nebulizer Soln - NEB Q4H PRN SHORT OF BREATH/WHEEZING Atenolol 50 mg 02/10/18 11:45 02/11/18 09:44 Tenormin - PO 50 mg DAILY DAVID Administration Budesonide/Formoterol Fumarate 2 puff 02/11/18 11:15 02/11/18 21:27 Symbicort 80/4.5mcg - IH 2 puff BID DAVID Administration Guaifenesin 600 mg 02/10/18 22:00 02/11/18 21:27 Mucinex - PO 600 mg BID DAVID Administration Levofloxacin 750 mg in 150 mls @ 100 mls/hr 02/11/18 10:00 02/11/18 09:43 Levaquin 750 Mg Premixed Ivpb - IVPB 100 mls/hr DAILY DAVID Administration Protocol Ipratropium [place] 1 amp 02/11/18 13:00 02/12/18 08:23 Atrovent 0.02% Nebulizer - NEB 1 amp RQID DAVID Administration Methylprednisolone Sodium Succinate 40 mg 02/11/18 11:15 02/12/18 08:23 Solu-Medrol - IVPUSH 40 mg Q6H-IV DAVID Administration Pantoprazole Sodium 40 mg 02/10/18 11:45 02/11/18 09:44 Protonix - PO 40 mg DAILY DAVID Administration Zolpidem Tartrate 5 mg 02/10/18 22:00 02/11/18 21:45 Ambien - PO 5 mg HS PRN Administration INSOMNIA ASSESSMENT/PLAN: 1) pulm acute bronchospasm mild persistent asthma - decrease Solu-Medrol to TID - Patient is afebrile, no leukocytosis will continue empiric Levaquin - continue atrovent standing with albuterol prn - incentive spirmoter and peak flow - appreciate Pulmonary input 2) cardiology hypertension - continue home dose Atenolol, Blood pressure at goal - echo lv wnl, mild mr and tr - vital signs q4h f/e/n -low Sodium cholesterol diet - replete electrolytes prn ppx - oob - scd - ppi dispo: patient requires inpatient admission Visit type - Emergency Visit Emergency Visit: Yes ED Registration Date: 02/10/18 Care time: The patient presented to the Emergency Department on the above date and was hospitalized for further evaluation of their emergent condition. - New Patient This patient is new to me today: No - Critical Care Critical Care patient: No - Discharge Referral Referred to [facility] No
[2018-02-12 08:33] LABS: BASO % 0.1 % (0-2.0); HEMATOCRIT 33.7 % (32.4-45.2); HEMOGLOBIN 11.1 GM/dl (10.7-15.3); LYMPH % 19.3 % (8-40); MCH 33.3 pg (25.7-33.7); MEAN CELL VOLUME 100.7 fl (80-96); MEAN PLT VOLUME 9.2 fl (7.5-11.1); MONO % 4.2 % (3.8-10.2); NEUT % 76.4 % (42.8-82.8); PLATELET COUNT 165 K/MM3 (134-434); RBC 3.34 M/mm3 (3.60-5.2); RDW 13.4 % (11.6-15.6); WHITE BLOOD COUNT 5.6 K/mm3 (4.0-10.8)
[2018-02-12 09:00] LABS: ANION GAP 11 MMOL/L (8-16); BLOOD UREA NITROGEN 28 mg/dl (7-18); CALCIUM 8.7 mg/dl (8.4-10.2); CHLORIDE 100 mmol/L (98-107); CO2 24 mmol/L (22-28); CREATININE 0.9 mg/dl (0.6-1.3); GLUCOSE,RANDOM 145 mg/dl (74-106); MAGNESIUM 2.2 mg/dL (1.8-2.4); PHOSPHOROUS 4.2 mg/dl (2.5-4.6); POTASSIUM 4.2 mmol/L (3.5-5.1); SODIUM 135 mmol/L (136-145)
[2018-02-12] MEDS: BUDESONIDE/FORMETEROL FUMARATE 80/4.5 mcg INHALER IH SCH ×2 (09:34→21:33)
[2018-02-12] MEDS: PANTOPRAZOLE 40 MG TABLET (FP) PO SCH (09:34)
[2018-02-12] MEDS: ATENOLOL 50 MG TABLET (FP) PO SCH (09:34)
[2018-02-12] MEDS: guaiFENesin 600 MG TABLET.ER (FP) PO SCH ×2 (09:34→21:32)
[2018-02-12] MEDS ORDERED: PT OWN MED DRAWER 7, Y5N ONE ×2 (10:33→21:17)
[2018-02-12] MEDS: ZOLPIDEM TARTRATE 5 MG TABLET PO PRN (21:32)
[2018-02-13] MEDS: methylPREDNISolone NA SUCC 40 MG/1 ML VIAL IVPUSH SCH ×3 (02:36→12:00)
--- NOTE | 2018-02-13 07:34 | PN ---
Progress Note, Physician History of Present Illness: PULMONARY ALERT,FEELING BETTER,LESS COUGH,-SOB - Current Medication List Current Medications: Active Medications Acetaminophen (Tylenol -) 650 mg PO Q4H PRN PRN Reason: FEVER Albuterol Sulfate (Ventolin 0.083% Nebulizer Soln -) 1 amp NEB Q4H PRN PRN Reason: SHORT OF BREATH/WHEEZING Atenolol (Tenormin -) 50 mg PO DAILY ON LICENSE OF [facility] Last Admin: 02/12/18 09:34 Dose: 50 mg Budesonide/Formoterol Fumarate (Symbicort 80/4.5mcg -) 2 puff IH BID ON LICENSE OF [facility] Last Admin: 02/12/18 21:33 Dose: 2 puff Guaifenesin (Mucinex -) 600 mg PO BID ON LICENSE OF [facility] Last Admin: 02/12/18 21:32 Dose: 600 mg Levofloxacin (Levaquin 750 Mg Premixed Ivpb -) 750 mg in 150 mls @ 100 mls/hr IVPB DAILY ON LICENSE OF [facility]; Protocol Last Admin: 02/12/18 09:33 Dose: 100 mls/hr Ipratropium [place] (Atrovent 0.02% Nebulizer -) 1 amp NEB RQID ON LICENSE OF [facility] Last Admin: 02/12/18 20:52 Dose: 1 amp Methylprednisolone Sodium Succinate (Solu-Medrol -) 40 mg IVPUSH Q8H-IV ON LICENSE OF [facility] Last Admin: 02/13/18 02:36 Dose: 40 mg Pantoprazole Sodium (Protonix -) 40 mg PO DAILY ON LICENSE OF [facility] Last Admin: 02/12/18 09:34 Dose: 40 mg Zolpidem Tartrate (Ambien -) 5 mg PO HS PRN PRN Reason: INSOMNIA Last Admin: 02/12/18 21:32 Dose: 5 mg - Objective Vital Signs: Vital Signs Temperature 98.6 F 02/13/18 06:00 Pulse Rate 60 02/13/18 06:00 Respiratory Rate 18 02/13/18 06:00 Blood Pressure 127/65 02/13/18 06:00 O2 Sat by Pulse Oximetry (%) 96 02/13/18 06:00 Constitutional: Yes: Well Nourished, Calm Eyes: Yes: WNL HENT: Yes: WNL Neck: Yes: WNL Cardiovascular: Yes: Regular Rate and Rhythm, S1, S2 Respiratory: Yes: Diminished Gastrointestinal: Yes: Normal Bowel Sounds, Soft Extremities: Yes: WNL Edema: No Problem List - Problems (1) Acute asthmatic bronchitis Code(s): J45.909 - UNSPECIFIED ASTHMA, UNCOMPLICATED (2) Bronchospastic airway disease Code(s): J98.09 - OTHER DISEASES OF BRONCHUS, NOT ELSEWHERE CLASSIFIED (3) Elevated lactic acid level Code(s): R79.89 - OTHER SPECIFIED ABNORMAL FINDINGS OF BLOOD CHEMISTRY (4) Fever Code(s): R50.9 - FEVER, UNSPECIFIED (5) High blood pressure Code(s): I10 - ESSENTIAL (PRIMARY) HYPERTENSION Qualifiers: Hypertension type: essential hypertension Qualified Code(s): I10 - Essential (primary) hypertension (6) Pulmonary HTN Code(s): I27.20 - PULMONARY HYPERTENSION, UNSPECIFIED Assessment/Plan IMP ASTHMATIC BRONCHITIS SECONDARY TO URI DIASTOLIC DYSFUNCTION HTN ANEMIA MILD PULMONARY HTN SUSPECTED OSAS ELEVATED LACTATE LEVEL PLAN STEROID TAPER INHALED BRONCHODILATORS O2 ABX MONITOR PEAK FLOW TREND LACTATE SLEEP STUDIES OUTPATIENT DR EDMOND Problem List - Problems (1) Acute asthmatic bronchitis Code(s): J45.909 - UNSPECIFIED ASTHMA, UNCOMPLICATED (2) Bronchospastic airway disease Code(s): J98.09 - OTHER DISEASES OF BRONCHUS, NOT ELSEWHERE CLASSIFIED (3) Elevated lactic acid level Code(s): R79.89 - OTHER SPECIFIED ABNORMAL FINDINGS OF BLOOD CHEMISTRY (4) Fever Code(s): R50.9 - FEVER, UNSPECIFIED (5) High blood pressure Code(s): I10 - ESSENTIAL (PRIMARY) HYPERTENSION Qualifiers: Hypertension type: essential hypertension Qualified Code(s): I10 - Essential (primary) hypertension (6) Pulmonary HTN Code(s): I27.20 - PULMONARY HYPERTENSION, UNSPECIFIED
[2018-02-13 08:33] LABS: HEMOGLOBIN 11.5 GM/dl (10.7-15.3); MCH 33.9 pg (25.7-33.7); NEUT % 75.9 % (42.8-82.8); RDW 13.2 % (11.6-15.6)
[2018-02-13 08:38] LABS: MCHC 33.8 g/dl (32.0-36.0); MEAN CELL VOLUME 100.3 fl (80-96); MEAN PLT VOLUME 8.8 fl (7.5-11.1); MONO % 5.1 % (3.8-10.2); PLATELET COUNT 175 K/MM3 (134-434); RBC 3.39 M/mm3 (3.60-5.2); WHITE BLOOD COUNT 5.6 K/mm3 (4.0-10.8)
[2018-02-13 08:48] LABS: ANION GAP 10 MMOL/L (8-16); BLOOD UREA NITROGEN 27 mg/dl (7-18); CALCIUM 8.4 mg/dl (8.4-10.2); CHLORIDE 100 mmol/L (98-107); CO2 24 mmol/L (22-28); GLUCOSE,RANDOM 160 mg/dl (74-106); MAGNESIUM 2.1 mg/dL (1.8-2.4); PHOSPHOROUS 4.1 mg/dl (2.5-4.6); POTASSIUM 4.2 mmol/L (3.5-5.1); SODIUM 134 mmol/L (136-145)
[2018-02-13] MEDS: IPRATROPIUM BR 0.02% 0.5 MG/2.5 ML VIAL.NEB. NEB SCH ×4 (09:47→20:44)
[2018-02-13] MEDS: guaiFENesin 600 MG TABLET.ER (FP) PO SCH ×2 (09:48→21:43)
[2018-02-13] MEDS: ATENOLOL 50 MG TABLET (FP) PO SCH (09:48)
[2018-02-13] MEDS: PANTOPRAZOLE 40 MG TABLET (FP) PO SCH (09:48)
[2018-02-13] MEDS: BUDESONIDE/FORMETEROL FUMARATE 80/4.5 mcg INHALER IH SCH ×2 (09:49→21:43)
--- NOTE | 2018-02-13 11:39 | PN ---
Physical Exam: SUBJECTIVE: Patient seen and examined, patient reports feeling well, reports decrease cough, does report dyspnea upon exertion OBJECTIVE: patient is a 67 y/o morbidly obese female with a past medical history of hypertension. patient was admitted for the emergency department for acute bronchospasm and persistent asthma Vital Signs Period Temp Pulse Resp BP Sys/Norton Pulse Ox Last 24 Hr 98.1 F-98.6 F 60-76 18-19 96-127/35-65 93-96 GENERAL: The patient is awake, alert, and fully oriented, in no acute distress. HEAD: Normal with no signs of trauma. EYES: PERRL, extraocular movements intact, sclera anicteric, conjunctiva clear. No ptosis. ENT: Ears normal, nares patent, oropharynx clear without exudates, moist mucous membranes. NECK: Trachea midline, full range of motion, supple. LUNGS: Breath sounds equal, clear to auscultation bilaterally, mild cough, diminished to bases, no wheezes, no crackles, no accessory muscle use. HEART: Regular rate and rhythm, S1, S2 without murmur, rub or gallop. ABDOMEN: Soft, nontender, nondistended, normoactive bowel sounds, no guarding, no rebound, no hepatosplenomegaly, no masses. EXTREMITIES: 2+ pulses, warm, well-perfused, no edema. NEUROLOGICAL: Cranial nerves II through XII grossly intact. Normal speech, gait not observed. PSYCH: Normal mood, normal affect. SKIN: Warm, dry, normal turgor, no rashes or lesions noted Laboratory Results - last 24 hr 02/13/18 02/13/18 07:00 07:00 WBC 5.6 RBC 3.39 L Hgb 11.5 Hct 34.0 MCV 100.3 H MCH 33.9 H MCHC 33.8 RDW 13.2 Plt Count 175 MPV 8.8 Absolute Neuts (auto) 4.2 Neutrophils % 75.9 Lymphocytes % 19.0 Monocytes % 5.1 Eosinophils % 0.0 Basophils % 0.0 Sodium 134 L Potassium 4.2 Chloride 100 Carbon Dioxide 24 Anion Gap 10 BUN 27 H Creatinine 1.0 Creat Clearance w eGFR 55.64 Random Glucose 160 H Calcium 8.4 Phosphorus 4.1 Magnesium 2.1 Active Medications Generic Name Dose Route Start Last Admin Trade Name Freq PRN Reason Stop Dose Admin Acetaminophen 650 mg 02/10/18 11:36 Tylenol - PO Q4H PRN FEVER Albuterol Sulfate 1 amp 02/11/18 13:58 Ventolin 0.083% Nebulizer Soln - NEB Q4H PRN SHORT OF BREATH/WHEEZING Atenolol 50 mg 02/10/18 11:45 02/13/18 09:48 Tenormin - PO 50 mg DAILY DAVID Administration Budesonide/Formoterol Fumarate 2 puff 02/11/18 11:15 02/13/18 09:49 Symbicort 80/4.5mcg - IH 2 puff BID DAVID Administration Guaifenesin 600 mg 02/10/18 22:00 02/13/18 09:48 Mucinex - PO 600 mg BID DAVID Administration Levofloxacin 750 mg in 150 mls @ 100 mls/hr 02/11/18 10:00 02/13/18 09:49 Levaquin 750 Mg Premixed Ivpb - IVPB 100 mls/hr DAILY DAVID Administration Protocol Ipratropium [place] 1 amp 02/11/18 13:00 02/13/18 09:47 Atrovent 0.02% Nebulizer - NEB 1 amp RQID DAVID Administration Methylprednisolone Sodium Succinate 40 mg 02/13/18 11:30 Solu-Medrol - IVPUSH Q12H DAVID Pantoprazole Sodium 40 mg 02/10/18 11:45 02/13/18 09:48 Protonix - PO 40 mg DAILY DAVID Administration Zolpidem Tartrate 5 mg 02/10/18 22:00 02/12/18 21:32 Ambien - PO 5 mg HS PRN Administration INSOMNIA Microbiology 02/10/18 08:25 Blood - Peripheral Venous Blood Culture - Preliminary NO GROWTH OBTAINED AFTER 72 HOURS, INCUBATION TO CONTINUE FOR 2 DAYS. 02/10/18 07:53 Blood - Peripheral Venous Blood Culture - Preliminary NO GROWTH OBTAINED AFTER 72 HOURS, INCUBATION TO CONTINUE FOR [address] of chest: Bibasilar atelectasis no evidence of pneumonia ASSESSMENT/PLAN: 1) pulm acute bronchospasm mild persistent asthma - continue Solu-Medrol TID - Patient is afebrile, no leukocytosis will continue empiric Levaquin - pre and post oxygen - continue atrovent standing with albuterol prn - continue incentive spirmoter and daily peak flow - Pulmonary, Dr Stuart consulted and following 2) cardiology hypertension - continue home dose Atenolol, Blood pressure at goal - echo lv wnl, mild mr and tr - vital signs q4h f/e/n -low Sodium cholesterol diet - replete electrolytes prn ppx - oob - scd - ppi dispo: patient requires inpatient admission Visit type - Emergency Visit Emergency Visit: Yes ED Registration Date: 02/10/18 Care time: The patient presented to the Emergency Department on the above date and was hospitalized for further evaluation of their emergent condition. - New Patient This patient is new to me today: No - Critical Care Critical Care patient: No - Discharge Referral Referred to [facility] No
[2018-02-13] MEDS ORDERED: PT OWN MED DRAWER 7, Y5N ONE (21:39)
[2018-02-13] MEDS: ZOLPIDEM TARTRATE 5 MG TABLET PO PRN (21:43)
[2018-02-14] MEDS: methylPREDNISolone NA SUCC 40 MG/1 ML VIAL IVPUSH SCH ×2 (01:00→12:00)
[2018-02-14] MEDS: IPRATROPIUM BR 0.02% 0.5 MG/2.5 ML VIAL.NEB. NEB SCH ×2 (08:30→13:09)
[2018-02-14 08:37] LABS: BASO % 0.2 % (0-2.0); HEMATOCRIT 36.4 % (32.4-45.2); HEMOGLOBIN 12.1 GM/dl (10.7-15.3); LYMPH % 25.2 % (8-40); MCH 33.4 pg (25.7-33.7); MCHC 33.4 g/dl (32.0-36.0); MEAN CELL VOLUME 100.1 fl (80-96); MEAN PLT VOLUME 9.8 fl (7.5-11.1); MONO % 5.3 % (3.8-10.2); NEUT % 69.3 % (42.8-82.8); PLATELET COUNT 186 K/MM3 (134-434); RBC 3.63 M/mm3 (3.60-5.2); RDW 13.4 % (11.6-15.6); WHITE BLOOD COUNT 5.9 K/mm3 (4.0-10.8)
[2018-02-14] MEDS: ATENOLOL 50 MG TABLET (FP) PO SCH (09:57)
[2018-02-14] MEDS: PANTOPRAZOLE 40 MG TABLET (FP) PO SCH (09:57)
[2018-02-14] MEDS: guaiFENesin 600 MG TABLET.ER (FP) PO SCH (09:57)
[2018-02-14] MEDS: BUDESONIDE/FORMETEROL FUMARATE 80/4.5 mcg INHALER IH SCH (09:57)
[2018-02-14 10:24] LABS: ANION GAP 10 MMOL/L (8-16); BLOOD UREA NITROGEN 29 mg/dl (7-18); CALCIUM 8.4 mg/dl (8.4-10.2); CHLORIDE 101 mmol/L (98-107); CO2 25 mmol/L (22-28); CREATININE 0.9 mg/dl (0.6-1.3); GLUCOSE,RANDOM 194 mg/dl (74-106); MAGNESIUM 2.1 mg/dL (1.8-2.4); PHOSPHOROUS 3.8 mg/dl (2.5-4.6); POTASSIUM 4.4 mmol/L (3.5-5.1); SODIUM 136 mmol/L (136-145)
--- NOTE | 2018-02-14 13:48 | DS ---
Physical Exam: SUBJECTIVE: Patient seen and examined oob to chair. OBJECTIVE: Vital Signs Period Temp Pulse Resp BP Sys/Norton Pulse Ox Last 24 Hr 98.0 F-98.6 F 61-74 16-20 104-125/42-60 94-97 PHYSICAL EXAM GENERAL: The patient is awake, alert, and fully oriented, in no acute distress. LUNGS: Breath sounds equal, clear to auscultation bilaterally, no wheezes, no crackles, no accessory muscle use. HEART: Regular rate and rhythm, S1, S2 without murmur, rub or gallop. ABDOMEN: Soft, nontender, nondistended EXTREMITIES: 2+ pulses, warm, well-perfused, no edema. NEUROLOGICAL: Cranial nerves II through XII grossly intact. Normal speech, gait not observed. f LABS Laboratory Results - last 24 hr 02/14/18 02/14/18 02/14/18 08:10 08:10 08:10 WBC 5.9 RBC 3.63 Hgb 12.1 Hct 36.4 MCV 100.1 H MCH 33.4 MCHC 33.4 RDW 13.4 Plt Count 186 MPV 9.8 Absolute Neuts (auto) 4.1 Neutrophils % 69.3 Lymphocytes % 25.2 Monocytes % 5.3 Eosinophils % 0.0 Basophils % 0.2 Sodium 136 Potassium 4.4 Chloride 101 Carbon Dioxide 25 Anion Gap 10 BUN 29 H Creatinine 0.9 Creat Clearance w eGFR > 60 Random Glucose 194 H D Lactic Acid 2.6 H* Calcium 8.4 Phosphorus 3.8 Magnesium 2.1 HOSPITAL COURSE: Date of Admission:02/10/18 Date of Discharge: 02/14/18 Pre hospital course 67 year-old female with a [facility] signficant for hypertension. Patient reports within the past 2 weeks she has ongoing cough with shortness of breath. She was evaluated by her primary care physician, Dr. Natarajan and completed a full course of amoxicillin. She reports persistent cough with wheezing and was evaluated in the emergency department on 02/07/2018 patient was started on Tessalon Perles and prednisone. She reports ongoing cough with wheezing and sought evaluation in the emergency department. Of note patient does report tactile fevers and fatigue. Patient denies any recent sick contacts or travel. ER course was notable for: (1)Chest x-ray,No infiltrate or effusion noted, atelectasis noted to left face (2) Tm100.7 Subsequent hospital course Treated with IV steroids, discharged on PO taper. Treated with duonebs, empiric levofloxacin. Minutes to complete discharge: 35 Discharge Summary Reason For Visit: COUGH Current Active Problems Acute asthmatic bronchitis (Acute) Bronchospastic airway disease (Acute) Elevated lactic acid level (Acute) Fever (Acute) Pulmonary HTN (Acute) Condition: Fair - Instructions Diet, Activity, Other Instructions: Three prescriptions have been sent to your pharmacy. One is for levofloxacin which is an antibiotic and another is for prednisone. Take these medications as directed and be sure to finish all the medications. The third prescription is for an albuterol inhaler. You should follow up with your primary care provider within 72 hours of your discharge. Tell him about your hospital stay and the medications you have been prescribed. Return to the emergency department for any new or worsening symptoms. Referrals: Pratik Stuart MD [Staff Physician] - Jacob Natarajan MD [Primary Care Provider] - Disposition: HOME - Home Medications Comprehensive Discharge Medication List: Ambulatory Orders Atenolol [Tenormin -] 50 mg PO DAILY #30 tablet 12/04/15 Omeprazole 40 mg PO DAILY 10/29/17 Benzonatate [Tessalon Pearls -] 100 mg PO TID PRN #21 capsule 02/07/18 Inhaler, Assist Devices [Space Chamber Plus] 1 each MC QID PRN #1 spacer Prednisone [Deltasone] 40 mg PO DAILY #8 tablet 02/07/18 Albuterol Sulfate Inhaler - [Ventolin HFA Inhaler -] 2 inh PO Q6H PRN #1 inh levoFLOXacin [Levaquin] 750 mg PO DAILY #7 tab 02/10/18 This patient is new to me today: Yes Date on this admission: 02/18/18 Emergency Visit: Yes ED Registration Date: 02/10/18 Care time: The patient presented to the Emergency Department on the above date and was hospitalized for further evaluation of their emergent condition. Critical Care patient: No - Discharge Referral Referred to [facility] Med P.C.: No
[2018-02-14 14:39] VITALS: BP 129/79; PULSE 73; TEMP 98.4
[2018-02-14] MEDS ORDERED: PT OWN MED DRAWER 7, Y5N ONE (18:28)
== END 2018-02-14 18:15 | disposition home or self-care (01) | DRG 202 ==
LOC: FER 06:39 → FM/S 10:33
PROVIDERS: ADMIT Hospitalist; ATTEND Nurse Practitioner Acute Care
PROC: 3E0F76Z Introduction of Nutritional Substance into Respiratory Tract, Via Natural or Artificial Opening (ICD-10-PCS; principal; 2018-02-10)
DX: J45.31 Mild persistent asthma with (acute) exacerbation (principal); J98.11 Atelectasis; E87.2 Acidosis; E66.01 Morbid (severe) obesity due to excess calories; J20.9 Acute bronchitis, unspecified; I10 Essential (primary) hypertension; E78.5 Hyperlipidemia, unspecified; I27.20 Pulmonary hypertension, unspecified; G47.33 Obstructive sleep apnea (adult) (pediatric); D64.9 Anemia, unspecified; Z68.39 Body mass index [BMI] 39.0-39.9, adult
CPT/HCPCS: 36415; 71046-TC-FY; 71250-TC; 80048; 80053; 82550; 82607; 83605; 83735; 83880; 84100; 84484; 85025; 87040; 93005; 93306-TC; 94640; 99282-25; 99283-25; J7030; J7620

== ENCOUNTER 2018-09-28 22:01 | Emergency (ER) | payer OTHER ==
--- NOTE | 2018-09-28 22:03 | PDOC ---
History of Present Illness - General Chief Complaint: Chest Pain Stated Complaint: CHEST PAIN Time Seen by Provider: 09/28/18 22:02 - History of Present Illness Initial Comments: 09/28/18 22:57 The patient is a 67 year old female presenting with her daughter, with a significant past medical history of HTN and pneumonia (2018), who presents to the ED complaining of chest pain for the past 3-4 hours. She describes her chest pain as a pressure, localized in the middle of her chest. Non-radiating. She reports excerbation of the pain with certain movements. She denies shortness of breath when she takes a deep breath. But she does reports shortness of breath associated with her chief complaint. She states that she experienced palpitations this morning and has experienced similar chest pain symptoms when she over exerts herself. She notes that she was recently in [facility] for 5 months and came back 2 weeks ago. She reports that she had a stress test performed last year but does not remember the results. She also reports right back of the knee/calf pain that ranges from mild to moderate, which makes it difficult for her to walk up the stairs. She states that the pain has been there prior to her trip to [facility] [place]. The patient denies headache and dizziness. Denies fever, chills, nausea, vomiting, diarrhea or constipation. Denies dysuria, frequency, urgency and hematuria. Allergies: IV Dye Past surgical history: None reported Social History: No alcohol, tobacco or drug use reported GENERAL/CONSTITUTIONAL: No fever or chills. No weakness. HEAD, EYES, EARS, NOSE AND THROAT: No change in vision. No ear pain or discharge. No sore throat. GASTROINTESTINAL: No nausea, vomiting, diarrhea or constipation. GENITOURINARY: No dysuria, frequency, or change in urination. CARDIOVASCULAR: (+) chest pain and shortness of breath. RESPIRATORY: No cough, wheezing, or hemoptysis. MUSCULOSKELETAL: No joint or muscle swelling or pain. No neck or back pain. SKIN: No rash NEUROLOGIC: No headache, vertigo, loss of consciousness, or change in strength/ sensation. ENDOCRINE: No increased thirst. No abnormal weight change. HEMATOLOGIC/LYMPHATIC: No anemia, easy bleeding, or history of blood clots. ALLERGIC/IMMUNOLOGIC: No hives or skin allergy. Constitutional: (+) Morbidly obese. Awake, alert, oriented. No acute distress. Head: Normocephalic. Atraumatic Eyes: PERRL. EOMI. Conjunctivae are not pale. ENT: Mucous membranes are moist and intact. Posterior pharynx without exudates or erythema. Uvula midline. Neck: Supple. Full ROM. No lymphadenopathy. Cardiovascular: Regular rate. Regular rhythm. S1, S2 regular. Distal pulses are 2+ and symmetric. Pulmonary/Chest: No evidence of respiratory distress. Clear to auscultation bilaterally No wheezing, rales or rhonchi. Abdominal: Soft and non-distended. There is no tenderness. No rebound, guarding or rigidity. No organomegaly. No palpable masses. Good bowel sounds. Back: No CVA tenderness. Musculoskeletal: (+) Mild edema, moderate tenderness of the right popliteal region. Full range of motion in all extremities. No calf tenderness. Radial/ pedal pulses are intact and 2+ bilaterally Skin: Skin is warm and dry. No petechiae. No purpura. Neurological: Alert and oriented to person, place, and time. Cranial nerves II -XII are grossly intact. Normal speech. Strength is grossly symmetric. No sensory deficits. Psychiatric: Good eye contact. Normal interaction, affect and behavior. Past History - Past Medical History Allergies/Adverse Reactions: Allergies Allergy/AdvReac Type Severity Reaction Status Date / Time Iodinated Contrast- Oral and Allergy Verified 09/28/18 22:24 IV Dye CONTRAST DYE Allergy Uncoded 09/28/18 22:24 Home Medications: Ambulatory Orders Atenolol [Tenormin] 50 mg PO DAILY 09/28/18 COPD: No HTN: Yes Hypercholesterolemia: Yes - Surgical History Cholecystectomy: Yes - Suicide/Smoking/Psychosocial Hx Smoking History: Never smoked Have you smoked in the past 12 months: No Number of Cigarettes Smoked Daily: 0 Hx Alcohol Use: No Drug/Substance Use Hx: No Substance Use Type: None *Physical Exam - Vital Signs Last Vital Signs Temp Pulse Resp BP Pulse Ox 97.6 F 70 16 154/87 100 09/28/18 22:06 09/28/18 22:06 09/28/18 22:06 09/28/18 22:06 09/28/18 23:05 - Physical Exam Comments: 12-lead electrocardiogram is performed and interpreted by me. Normal sinus rhythm at 73 bpm. [place], wave forms and intervals are all normal. There is no change from the EKG tracing dated 02/10/18 Heart Score/ECG Review - History History: Slightly suspicious - Electrocardiogram EKG: Normal - Age Age: >/= 65 - Risk Factors Risk Factors Heart Score: Yes Hx Hypertension, Yes Hx Obesity Based on the list above the patient has:: 1-2 risk factors - Troponin Troponin: </= normal limit - Score Heart Score - Total: 3 ED Treatment Course - LABORATORY CBC & Chemistry Diagram: 09/28/18 22:20 09/28/18 22:20 - ADDITIONAL ORDERS Additional order review: Laboratory Results 09/28/18 09/28/18 09/28/18 22:20 22:20 22:20 WBC 10.9 H RBC 3.49 L Hgb 11.8 Hct 34.9 MCV 99.9 H MCH 33.8 H MCHC 33.9 RDW 14.1 Plt Count 159 MPV 9.8 Absolute Neuts (auto) 3.8 Neutrophils % No Result Required. Neutrophils % (Manual) 34.0 L Band Neutrophils % 4.0 Lymphocytes % No Result Required. Lymphocytes % (Manual) 56.0 H Monocytes % (Manual) 6 Platelet Estimate Adequate Sodium 138 Potassium 4.8 Chloride 105 Carbon Dioxide 21 Anion Gap 12 BUN 13 Creatinine 0.7 Creat Clearance w eGFR 83.98 Random Glucose 144 H Calcium 8.4 L Total Bilirubin 1.5 H AST 84 H ALT 51 Alkaline Phosphatase 94 Creatine Kinase 94 Troponin I < 0.03 Total Protein 7.6 Albumin 3.6 09/28/18 22:20 RBC 3.49 L MCV 99.9 H MCHC 33.9 RDW 14.1 MPV 9.8 Neutrophils % No Result Required. Lymphocytes % No Result Required. - RADIOLOGY Radiology Studies Ordered: Category Date Time Status CHEST X-RAY PORTABLE* [RAD] Stat Radiology 09/28/18 22:13 Taken DUPLEX VASCUL US-1 LEG [US] Stat Ultrasound 09/28/18 22:42 Taken Medical Decision Making - Medical Decision Making 09/29/18 00:17 As noted above, 12-lead electrocardiogram is normal without evidence of acute ST or T-wave abnormalities and no evidence of acute cardiac arrhythmia Laboratory evaluation including CBC/chemistry profile/troponin sent. There is minimal elevation of white blood cell count (10,900) with differential showing a predominance of lymphocytes. Remainder of the CBC was unchanged from previous values. Likewise, chemistry profile revealed mild elevation of random glucose; electrolytes/creatinine/BUN are normal. Troponin is not elevated at less than 0.03 Although patient describes a relatively long history of pain/edema in the right popliteal region, there has been no previous evaluation of this area. She recently (2 weeks ago) traveled from [facility] [place] and she is currently experiencing chest symptoms. Therefore Doppler duplex ultrasound was performed of the right lower extremity to fully rule out DVT: No evidence of DVT seen on ultrasound study (interpretation by Imaging physicians and surgeons) Results discussed with the patient and her daughter. She is feeling much less discomfort now; she will be discharged with advice to follow up with her PMD ( ) within 48 hours. She should also arrange for follow-up with her cobol mainframe developer, . Patient asked for orthopedic referral to fully evaluate her right posterior knee pain. [facility] are on-call and referral information has been provided for the patient. The patient has been instructed to return to the ER if she experiences persistent chest pain/pressure, shortness of breath or persistent palpitations. *DC/Admit/Observation/Transfer Diagnosis at time of Disposition: Atypical chest pain - Discharge Dispostion Disposition: HOME Condition at time of disposition: Stable - Referrals Referrals: Bill Mike MD [Staff Physician] - Call tomorrow Jacob Natarajan MD [Primary Care Provider] - Call tomorrow Mario Law MD [Staff Physician] - 1 week - Patient Instructions Printed Discharge Instructions: DI for Atypical Chest Pain Additional Instructions: Rest; Avoid strenuous activity for the next 5 days Call office tomorrow morning to arrange follow-up within the next 48 hours Call cobol mainframe developer () office tomorrow to arrange follow-up as discussed Follow-up with orthopedic group ([facility]) within 1 week Return to ER if you have persistent severe pain or develop persistent palpitations/shortness of breath - Post Discharge Activity
[2018-09-28 22:10] VITALS: BP 154/87; PULSE 70; TEMP 97.6; BMI 34.0
[2018-09-28 22:38] LABS: HEMOGLOBIN 11.8 GM/dl (10.7-15.3)
[2018-09-28 22:44] LABS: HEMATOCRIT 34.9 % (32.4-45.2); MCH 33.8 pg (25.7-33.7); MCHC 33.9 g/dl (32.0-36.0); MEAN CELL VOLUME 99.9 fl (80-96); MEAN PLT VOLUME 9.8 fl (7.5-11.1); PLATELET COUNT 159 K/MM3 (134-434); RBC 3.49 M/mm3 (3.60-5.2); RDW 14.1 % (11.6-15.6); WHITE BLOOD COUNT 10.9 K/mm3 (4.0-10.8)
[2018-09-28 22:50] LABS: ALBUMIN 3.6 g/dl (3.4-5.0); ALK PHOS 94 U/L (45-117); ANION GAP 12 MMOL/L (8-16); BILIRUBIN,TOTAL 1.5 mg/dl (0.2-1); BLOOD UREA NITROGEN 13 mg/dl (7-18); CALCIUM 8.4 mg/dl (8.5-10); CHLORIDE 105 mmol/L (98-107); CO2 21 mmol/L (21-32); CREATININE 0.7 mg/dl (0.55-1.3); GLUCOSE,RANDOM 144 mg/dl (74-106); SGOT/AST 84 U/L (15-37); SGPT/ALT 51 U/L (13-61); SODIUM 138 mmol/L (136-145); TOT PROT 7.6 g/dl (6.4-8.2)
[2018-09-28 22:51] LABS: POTASSIUM 4.8 mmol/L (3.5-5.1)
[2018-09-28 23:04] LABS: PLATELET ESTIMATE ADEQUATE
--- NOTE | 2018-09-29 15:04 | EKG ---
Test Reason : Blood Pressure : / mmHG Vent. Rate : 073 BPM Atrial Rate : 073 BPM P-R Int : 138 ms QRS Dur : 074 ms QT Int : 436 ms P-R-T Axes : 007 -23 007 degrees QTc Int : 480 ms NORMAL SINUS RHYTHM NORMAL ECG WHEN COMPARED WITH ECG OF 10-FEB-2018 07:15, NO SIGNIFICANT CHANGE WAS FOUND Confirmed by Nikolas Terry ([id number]) on 09/29/2018 3:03:59 PM Referred By: Confirmed By:Nikolas Terry
== END 2018-09-29 00:24 | disposition home or self-care (01) ==
LOC: FER 22:01
DX: R07.89 Other chest pain (principal); I10 Essential (primary) hypertension; E66.9 Obesity, unspecified
CPT/HCPCS: 36415; 71045-TC-FY; 80053; 82550; 84484; 85025; 93005; 93971-TC; 99283-25

== ENCOUNTER 2019-01-28 01:30 | Emergency (ER) | payer OTHER | END 2019-01-28 06:11 | disposition home or self-care (01) | LOC: FER 01:30 ==

== ENCOUNTER 2020-05-03 14:26 | Emergency (ER) | payer OTHER ==
[2020-05-03 14:50] VITALS: BP 123/52; PULSE 77; TEMP 99.3; BMI 38.0
== END 2020-05-03 16:20 | disposition home or self-care (01) ==
LOC: FER 14:26
DX: J98.01 Acute bronchospasm (principal)
CPT/HCPCS: 71045-TC-FY; 99283-25

== ENCOUNTER 2021-10-21 10:11 | Emergency (ER) | payer OTHER ==
[2021-10-21] MEDS ORDERED: ALBUTEROL SO4 2.5/IPRATROPIUM 0.5 INH SOL 3 ML VIAL.NEB. NEB ONE ×2 (10:25→10:37)
[2021-10-21] MEDS ORDERED: ACETAMINOPHEN 500 MG TABLET (FP) PO ONE (10:33)
[2021-10-21 10:35] VITALS: BP 146/69; PULSE 96; TEMP 97; BMI 35.4
[2021-10-21] MEDS ORDERED: ACETAMINOPHEN 325 MG TABLET (FP) ONE (10:38)
[2021-10-21] MEDS ORDERED: ALBUTEROL SO4 HFA INHALER IH ONE ×2 (11:23→11:44)
[2021-10-21] MEDS ORDERED: AZITHROMYCIN 250 MG TABLET PO ONE (11:25)
[2021-10-21] MEDS ORDERED: AZITHROMYCIN 250 MG TABLET ONE (11:44)
[2021-10-23 15:16] LABS: SARS-CoV-2 NAA Not Detected (Not Detected)
== END 2021-10-21 11:51 | disposition home or self-care (01) ==
LOC: FER 10:11
PROC: 3E0F7GC Introduction of Other Therapeutic Substance into Respiratory Tract, Via Natural or Artificial Opening (ICD-10-PCS; principal; 2021-10-21)
DX: J40 Bronchitis, not specified as acute or chronic (principal); J98.4 Other disorders of lung
CPT/HCPCS: 71045-TC-FY; 87804; 87807; 99284-25; C9803-CS; U0003; U0005

== ENCOUNTER 2021-11-10 20:47 | Emergency (ER) | payer OTHER ==
[2021-11-10 20:55] VITALS: BP 128/65; PULSE 78; TEMP 98.9; BMI 35.1
[2021-11-10] MEDS ORDERED: ALBUTEROL SO4 2.5/IPRATROPIUM 0.5 INH SOL 3 ML VIAL.NEB. NEB ONE ×2 (21:15→21:16)
== END 2021-11-10 21:59 | disposition home or self-care (01) ==
LOC: FER 20:47
PROC: 3E0F7GC Introduction of Other Therapeutic Substance into Respiratory Tract, Via Natural or Artificial Opening (ICD-10-PCS; principal; 2021-11-10)
DX: J20.8 Acute bronchitis due to other specified organisms (principal)
CPT/HCPCS: 99284-25

== ENCOUNTER 2021-12-23 01:08 | Emergency (ER) | payer OTHER ==
[2021-12-23 01:16] VITALS: BP 151/68; PULSE 67; TEMP 98.6; BMI 35.1
== END 2021-12-23 01:25 | disposition home or self-care (01) ==
LOC: FER 01:08
DX: H93.11 Tinnitus, right ear (principal)
CPT/HCPCS: 99281-25

== ENCOUNTER 2022-01-01 05:59 | Emergency (ER) | payer OTHER ==
[2022-01-01 06:10] VITALS: BMI 37.3
[2022-01-01] MEDS ORDERED: ACETAMINOPHEN 1000 MG/100 ML BAG IVPB ONE (06:20)
[2022-01-01] MEDS ORDERED: ONDANSETRON 4 MG/2 ML VIAL IVPB ONE (06:28)
[2022-01-01] MEDS ORDERED: ONDANSETRON 4 MG/2 ML VIAL ONE (06:42)
[2022-01-01] MEDS ORDERED: ACETAMINOPHEN INJECTION 100 ML IVPB ONE (06:42)
[2022-01-01 07:53] LABS: HEMATOCRIT 30.4 % (32.4-45.2); HEMOGLOBIN 10.4 G/dL (10.7-15.3); MCH 35.6 pg (25.7-33.7); MCHC 34.3 g/dl (32.0-36.0); MEAN CELL VOLUME 103.9 fl (80-96); MEAN PLT VOLUME 10.4 fl (7.5-11.1); PLATELET COUNT 99.4 10^3/uL (134-434); RBC 2.93 10^6/uL (3.60-5.2); RDW 14.8 % (11.6-15.6); WHITE BLOOD COUNT 3.3 10^3/uL (4.0-10.8)
[2022-01-01 07:55] LABS: INR 1.58 (0.83-1.09); PROTHROMBIN TIME (PATIENT) 18.2 SEC (9.7-13.0)
[2022-01-01 07:58] LABS: ACTIVATED PTT 29.1 SECONDS (25.2-36.5)
[2022-01-01] MEDS ORDERED: SODIUM CHLORIDE 0.9% 500 ML INFUS.BAG IV ONE (08:00)
[2022-01-01 08:03] LABS: ALBUMIN 2.9 g/dl (3.4-5.0); BILIRUBIN,TOTAL 0.8 mg/dl (0.2-1); CALCIUM 7.7 mg/dl (8.5-10); CREATININE 0.8 mg/dl (0.55-1.3); TOT PROT 7.9 g/dl (6.4-8.2)
[2022-01-01] MEDS ORDERED: CALCIUM GLUCONATE 10% - 1,000 MG/10 ML VIAL IVPB ONE (08:12)
[2022-01-01] MEDS ORDERED: CALCIUM GLUCONATE 10% - 1,000 MG/10 ML VIAL ONE (08:18)
[2022-01-01] MEDS ORDERED: CEFTRIAXONE 1 GM in DEXTROSE 5%-WATER - 50 ML IVPB ONE (08:21)
[2022-01-01] MEDS ORDERED: cefTRIAXone SODIUM 1 GM VIAL ONE (08:31)
[2022-01-01 08:51] LABS: EPITHELIAL CELLS FEW /hpf
[2022-01-01] MEDS ORDERED: KETOROLAC TROMETHAMINE 30 MG/1 ML VIAL IVPUSH ONE (08:52)
[2022-01-01] MEDS ORDERED: KETOROLAC TROMETHAMINE 15 MG/ML VIAL ONE (08:53)
[2022-01-01 10:04] LABS: LACTIC ACID 2.1 mmol/L (0.4-2.0)
[2022-01-01 10:49] VITALS: BP 102/49; PULSE 77; TEMP 100.1
== END 2022-01-01 11:59 | disposition home or self-care (01) ==
LOC: FER 05:59
PROC: 3E0333Z Introduction of Anti-inflammatory into Peripheral Vein, Percutaneous Approach (ICD-10-PCS; principal; 2022-01-01)
PROC: 3E033GC Introduction of Other Therapeutic Substance into Peripheral Vein, Percutaneous Approach (ICD-10-PCS; 2022-01-01)
PROC: 3E03329 Introduction of Other Anti-infective into Peripheral Vein, Percutaneous Approach (ICD-10-PCS; 2022-01-01)
PROC: 3E0333Z Introduction of Anti-inflammatory into Peripheral Vein, Percutaneous Approach (ICD-10-PCS; 2022-01-01)
PROC: 3E033GC Introduction of Other Therapeutic Substance into Peripheral Vein, Percutaneous Approach (ICD-10-PCS; 2022-01-01)
DX: N39.0 Urinary tract infection, site not specified (principal); R10.9 Unspecified abdominal pain
CPT/HCPCS: 0241U-QW; 36415; 71045-TC-FY; 74176-TC; 80053; 81003; 81015; 82553; 83605; 84484; 85025; 85610; 85730; 86850; 86900; 86901; 87040; 87086; 87186; 93005; 99285-25

== ENCOUNTER 2022-01-01 18:13 | Inpatient (IN) | payer OTHER ==
[2022-01-01] MEDS ORDERED: IBUPROFEN 600 MG TABLET (FP) PO ONE ×2 (18:29→18:34)
[2022-01-01] MEDS ORDERED: ONDANSETRON *ODT* 4 MG TABLET ONE (18:35)
[2022-01-01] MEDS ORDERED: ONDANSETRON *ODT* 4 MG TABLET SL ONE (18:35)
[2022-01-01] MEDS ORDERED: ALBUTEROL SO4 HFA INHALER IH PRN (21:30)
[2022-01-01] MEDS ORDERED: SODIUM CHLORIDE 1,000 ML IV SCH (21:45)
[2022-01-02] MEDS: ACETAMINOPHEN 325 MG TABLET (FP) PO PRN ×3 (02:16→15:24)
[2022-01-02 04:54] VITALS: BMI 40.8
[2022-01-02 08:14] LABS: CALCIUM 7.8 mg/dl (8.5-10); CREATININE 0.8 mg/dl (0.55-1.3)
[2022-01-02] MEDS ORDERED: DEXTROSE 5%-WATER - 50 ML IVPB ONE (09:06)
[2022-01-02] MEDS ORDERED: cefTRIAXone SODIUM 1 GM VIAL ONE (09:06)
[2022-01-02] MEDS: TAMSULOSIN HCL 0.4 MG CAP PO SCH (09:16)
[2022-01-02] MEDS ORDERED: ATENOLOL 50 MG TABLET (FP) PO SCH (10:00)
[2022-01-02] MEDS ORDERED: CEFTRIAXONE 1 GM in DEXTROSE 5%-WATER - 50 ML IVPB SCH (10:00)
[2022-01-02 10:35] LABS: HEMATOCRIT 27.6 % (32.4-45.2); HEMOGLOBIN 9.4 GM/dL (10.7-15.3); MCHC 33.9 g/dl (32.0-36.0); MEAN CELL VOLUME 103.4 fl (80-96); MEAN PLT VOLUME 9.8 fl (7.5-11.1); PLATELET COUNT 74 10^3/uL (134-434); RBC 2.67 M/mm3 (3.60-5.2); RDW 15.8 % (11.6-15.6)
[2022-01-02 10:44] LABS: WHITE BLOOD COUNT 1.6 K/mm3 (4.0-10.0)
[2022-01-02 11:17] LABS: ANISOCYTOSIS 1+; MACROCYTOSIS 1+; PLATELET ESTIMATE DECREASED
[2022-01-02] MEDS ORDERED: CEFTRIAXONE 1,000 MG in DEXTROSE 5%-WATER - 50 ML IVPB ONE (14:00)
[2022-01-02] MEDS ORDERED: CEFTRIAXONE 1,000 GM in DEXTROSE 5%-WATER - 50 ML IVPB ONE (14:13)
[2022-01-02 14:17] LABS: MCH 36.2 pg (25.7-33.7); MCHC 34.5 g/dl (32.0-36.0); MEAN PLT VOLUME 10.2 fl (7.5-11.1); PLATELET COUNT 71.2 10^3/uL (134-434); RBC 2.48 10^6/uL (3.60-5.2); RDW 15.4 % (11.6-15.6); WHITE BLOOD COUNT 1.7 10^3/uL (4.0-10.8)
[2022-01-02] MEDS ORDERED: CEFTRIAXONE 1 GM in DEXTROSE 5%-WATER - 50 ML IVPB ONE (14:17)
[2022-01-02] MEDS: ACETAMINOPHEN 1000 MG/100 ML BAG IVPB PRN (18:02)
[2022-01-02] MEDS: SODIUM CHLORIDE 1,000 ML IV SCH (21:57)
[2022-01-02] MEDS: POTASSIUM CITRATE/CITRIC ACID 2 MEQ/ML ML PO SCH (22:33)
[2022-01-03] MEDS: ACETAMINOPHEN 1000 MG/100 ML BAG IVPB PRN (04:27)
[2022-01-03 08:32] LABS: ALBUMIN 2.7 g/dl (3.4-5.0); BILIRUBIN,TOTAL 0.6 mg/dl (0.2-1); CALCIUM 7.9 mg/dl (8.5-10); CREATININE 0.9 mg/dl (0.55-1.3); TOT PROT 7.7 g/dl (6.4-8.2)
[2022-01-03] MEDS: SODIUM CHLORIDE 1,000 ML IV SCH ×2 (08:41→20:37)
[2022-01-03] MEDS ORDERED: CEFEPIME HCL 2 GM VIAL (RESTRICTED TO ID) ONE ×2 (09:55→17:04)
[2022-01-03] MEDS ORDERED: DEXTROSE 5%-WATER 100 ML IVPB ONE ×2 (09:56→17:04)
[2022-01-03] MEDS ORDERED: CEFEPIME 2 GM in DEXTROSE 5%-WATER 100 ML IVPB SCH (10:00)
[2022-01-03] MEDS: TAMSULOSIN HCL 0.4 MG CAP PO SCH (10:00)
[2022-01-03] MEDS ORDERED: CEFTRIAXONE 2 GM in DEXTROSE 5%-WATER 100 ML IVPB SCH (10:00)
[2022-01-03] MEDS ORDERED: CEFTRIAXONE 2 GM-D5W BAG 2 GM/50 ML BAG IVPB SCH (10:00)
[2022-01-03] MEDS ORDERED: ENOXAPARIN NA (PORCINE) 40 MG/0.4 ML DISP.SYRIN SQ SCH (10:00)
[2022-01-03] MEDS: CEFEPIME 2 GM in DEXTROSE 5%-WATER 100 ML IVPB SCH ×2 (10:01→17:07)
[2022-01-03 10:29] LABS: HEMOGLOBIN 10.1 GM/dL (10.7-15.3); MCH 35.3 pg (25.7-33.7); MCHC 33.7 g/dl (32.0-36.0); MEAN CELL VOLUME 104.9 fl (80-96); MEAN PLT VOLUME 9.8 fl (7.5-11.1); PLATELET COUNT 77 10^3/uL (134-434); RBC 2.86 M/mm3 (3.60-5.2); RDW 15.9 % (11.6-15.6); WHITE BLOOD COUNT 2.1 K/mm3 (4.0-10.0)
[2022-01-03] MEDS: POTASSIUM CITRATE/CITRIC ACID 2 MEQ/ML ML PO SCH ×2 (13:00→21:46)
[2022-01-03] MEDS ORDERED: ACETAMINOPHEN 325 MG TABLET (FP) PO ONE (21:38)
[2022-01-03 21:54] LABS: MAGNESIUM 2.2 mg/dL (1.8-2.4)
[2022-01-04] MEDS: CEFEPIME 2 GM in DEXTROSE 5%-WATER 100 ML IVPB SCH ×3 (03:10→18:33)
[2022-01-04] MEDS ORDERED: CEFEPIME HCL 2 GM VIAL (RESTRICTED TO ID) ONE ×3 (03:35→15:15)
[2022-01-04] MEDS ORDERED: DEXTROSE 5%-WATER 100 ML IVPB ONE ×3 (03:36→15:15)
[2022-01-04] MEDS ORDERED: ACETAMINOPHEN 1000 MG/100 ML BAG IVPB ONE (04:29)
[2022-01-04 08:26] LABS: ALBUMIN 2.7 g/dl (3.4-5.0); BILIRUBIN,TOTAL 0.7 mg/dl (0.2-1); CALCIUM 8.3 mg/dl (8.5-10); CREATININE 0.7 mg/dl (0.55-1.3); TOT PROT 7.7 g/dl (6.4-8.2)
[2022-01-04] MEDS: TAMSULOSIN HCL 0.4 MG CAP PO SCH (08:58)
[2022-01-04 09:49] LABS: HEMOGLOBIN 10.9 GM/dL (10.7-15.3); MEAN CELL VOLUME 104.1 fl (80-96)
[2022-01-04] MEDS: POTASSIUM CITRATE/CITRIC ACID 2 MEQ/ML ML PO SCH ×2 (09:59→21:52)
[2022-01-04 10:00] LABS: BASO % 0.3 % (0-2.0); EOS % 3.5 % (0-4.5); HEMATOCRIT 32.3 % (32.4-45.2); LYMPH % 54.1 % (8-40); MCH 35.3 pg (25.7-33.7); MCHC 33.9 g/dl (32.0-36.0); MEAN PLT VOLUME 9.2 fl (7.5-11.1); MONO % 8.4 % (3.8-10.2); NEUT % 33.7 % (42.8-82.8); RDW 16.2 % (11.6-15.6)
[2022-01-04 10:49] LABS: PLATELET COUNT 94 10^3/uL (134-434)
[2022-01-04] MEDS: VANCOMYCIN 1 GRAM (PRE-DOCKED) 1,000 MG/200 ML BAG IVPB SCH ×2 (11:30→21:58)
[2022-01-04] MEDS: traMADol HCL 50 MG TABLET PO PRN (15:21)
[2022-01-04] MEDS ORDERED: CEFEPIME HCL/D5W 2 GM/50 ML BAG IVPB SCH (18:00)
[2022-01-04] MEDS: SODIUM CHLORIDE 1,000 ML IV SCH (18:35)
[2022-01-05] MEDS ORDERED: CEFEPIME HCL 2 GM VIAL (RESTRICTED TO ID) ONE ×4 (02:30→23:46)
[2022-01-05] MEDS ORDERED: DEXTROSE 5%-WATER 100 ML IVPB ONE ×4 (02:30→23:47)
[2022-01-05] MEDS: CEFEPIME 2 GM in DEXTROSE 5%-WATER 100 ML IVPB SCH ×3 (02:34→17:15)
[2022-01-05] MEDS: traMADol HCL 50 MG TABLET PO PRN (02:43)
[2022-01-05] MEDS: POTASSIUM CITRATE/CITRIC ACID 2 MEQ/ML ML PO SCH ×2 (09:12→21:18)
[2022-01-05] MEDS: VANCOMYCIN 1 GRAM (PRE-DOCKED) 1,000 MG/200 ML BAG IVPB SCH (09:58)
[2022-01-05] MEDS ORDERED: traMADol HCL 50 MG TABLET PO PRN (10:08)
[2022-01-05] MEDS: LACTOBACILLUS ACIDOPHILUS 1 TABLET PO SCH (10:45)
[2022-01-05] MEDS: INSULIN SLIDING SCALE (NOVOLOG) 1 VIAL SQ SCH ×3 (11:43→21:20)
[2022-01-05] MEDS: SODIUM CHLORIDE 1,000 ML IV SCH (17:13)
[2022-01-06] MEDS: CEFEPIME 2 GM in DEXTROSE 5%-WATER 100 ML IVPB SCH ×3 (01:07→17:07)
[2022-01-06] MEDS: SODIUM CHLORIDE 1,000 ML IV SCH (08:03)
[2022-01-06] MEDS ORDERED: CEFEPIME HCL 2 GM VIAL (RESTRICTED TO ID) ONE ×3 (08:57→23:25)
[2022-01-06] MEDS ORDERED: DEXTROSE 5%-WATER 100 ML IVPB ONE ×3 (08:57→23:25)
[2022-01-06] MEDS: LACTOBACILLUS ACIDOPHILUS 1 TABLET PO SCH (09:05)
[2022-01-06] MEDS: TAMSULOSIN HCL 0.4 MG CAP PO SCH ×2 (09:05→09:10)
[2022-01-06] MEDS: POTASSIUM CITRATE/CITRIC ACID 2 MEQ/ML ML PO SCH ×2 (09:05→21:28)
[2022-01-06 09:30] LABS: HEMATOCRIT 32.2 % (32.4-45.2); HEMOGLOBIN 11.2 G/dL (10.7-15.3); MCH 36.3 pg (25.7-33.7); MCHC 34.6 g/dl (32.0-36.0); MEAN CELL VOLUME 104.9 fl (80-96); MEAN PLT VOLUME 9.5 fl (7.5-11.1); RBC 3.07 10^6/uL (3.60-5.2); RDW 15.1 % (11.6-15.6); WHITE BLOOD COUNT 3.2 10^3/uL (4.0-10.8)
[2022-01-06 09:51] LABS: ALBUMIN 2.8 g/dl (3.4-5.0); BILIRUBIN,TOTAL 0.9 mg/dl (0.2-1); CREATININE 0.7 mg/dl (0.55-1.3); TOT PROT 7.9 g/dl (6.4-8.2)
[2022-01-06] MEDS: INSULIN SLIDING SCALE (NOVOLOG) 1 VIAL SQ SCH ×3 (11:22→21:34)
[2022-01-06 16:54] LABS: HIV INTERPRETATION NEGATIVE (NEGATIVE)
[2022-01-07] MEDS: CEFEPIME 2 GM in DEXTROSE 5%-WATER 100 ML IVPB SCH ×2 (01:25→09:42)
[2022-01-07] MEDS: INSULIN SLIDING SCALE (NOVOLOG) 1 VIAL SQ SCH ×2 (06:31→11:15)
[2022-01-07 08:08] LABS: ALBUMIN 2.8 g/dl (3.4-5.0); BILIRUBIN,TOTAL 0.9 mg/dl (0.2-1); CALCIUM 8.1 mg/dl (8.5-10); CREATININE 0.6 mg/dl (0.55-1.3); TOT PROT 7.9 g/dl (6.4-8.2)
[2022-01-07 08:53] LABS: HEMATOCRIT 32.7 % (32.4-45.2); HEMOGLOBIN 11.1 GM/dL (10.7-15.3); MCH 34.9 pg (25.7-33.7); MCHC 33.8 g/dl (32.0-36.0); MEAN CELL VOLUME 103.2 fl (80-96); MEAN PLT VOLUME 9.2 fl (7.5-11.1); PLATELET COUNT 86 10^3/uL (134-434); RBC 3.17 M/mm3 (3.60-5.2); RDW 15.9 % (11.6-15.6); WHITE BLOOD COUNT 3.1 K/mm3 (4.0-10.0)
[2022-01-07] MEDS ORDERED: CEFEPIME HCL 2 GM VIAL (RESTRICTED TO ID) ONE (09:39)
[2022-01-07] MEDS ORDERED: DEXTROSE 5%-WATER 100 ML IVPB ONE (09:39)
[2022-01-07] MEDS: LACTOBACILLUS ACIDOPHILUS 1 TABLET PO SCH (09:42)
[2022-01-07] MEDS: POTASSIUM CITRATE/CITRIC ACID 2 MEQ/ML ML PO SCH (09:42)
[2022-01-07] MEDS ORDERED: ATENOLOL 25 MG TABLET (FP) PO SCH (10:00)
[2022-01-07 10:08] VITALS: TEMP 98.4
[2022-01-07 12:06] LABS: BASO % 0.3 % (0-2.0); LYMPH % 45.6 % (8-40); MONO % 11.3 % (3.8-10.2); NEUT % 38.8 % (42.8-82.8)
[2022-01-07 14:36] VITALS: BP 129/62; PULSE 70; RESP 18
== END 2022-01-07 14:39 | disposition home or self-care (01) | DRG 690 ==
LOC: FER 18:13 → FM/S 18:25 → OBSVTOIN 01-03 13:20
PROVIDERS: ADMIT Internal Medicine
DX: N39.0 Urinary tract infection, site not specified (principal); D61.818 Other pancytopenia; I10 Essential (primary) hypertension; N20.0 Calculus of kidney; E11.9 Type 2 diabetes mellitus without complications; J45.909 Unspecified asthma, uncomplicated; E66.9 Obesity, unspecified; Z68.33 Body mass index [BMI] 33.0-33.9, adult; R16.0 Hepatomegaly, not elsewhere classified; R74.01 Elevation of levels of liver transaminase levels; D70.9 Neutropenia, unspecified; D64.9 Anemia, unspecified; E78.5 Hyperlipidemia, unspecified; N13.8 Other obstructive and reflux uropathy; B95.7 Other staphylococcus as the cause of diseases classified elsewhere
CPT/HCPCS: 36415; 71045-TC-FY; 76705-TC; 76775-TC; 80048; 80053; 80061; 81003; 82550; 82607; 82747; 82930; 82962; 83036; 83615; 83735; 84443; 85014; 85025; 85027; 85651; 86038; 86140; 86431; 86618; 86705; 86803; 87040; 87207; 87340; 87389; 87798; 93306-TC; 93970-TC; 99285-25; G0378; Q0162

== ENCOUNTER 2022-04-16 14:46 | Emergency (ER) | payer OTHER ==
[2022-04-16] MEDS ORDERED: ALBUTEROL SO4 2.5/IPRATROPIUM 0.5 INH SOL 3 ML VIAL.NEB. NEB ONE ×2 (14:56→15:10)
[2022-04-16 15:17] VITALS: BP 136/70; PULSE 74; RESP 20; TEMP 98.8; BMI 40.7
[2022-04-16] MEDS ORDERED: MAGNESIUM SULF 50% (8.12 MEQ/2 ML-1 GM VIAL) IVPB ONE (15:36)
[2022-04-16] MEDS ORDERED: MAGNESIUM SULFATE IN WATER 2 GM/50 ML IVPB IVPB ONE (15:40)
[2022-04-16 16:26] LABS: HEMATOCRIT 31.7 % (32.4-45.2); HEMOGLOBIN 11.5 G/dL (10.7-15.3); MCHC 36.2 g/dl (32.0-36.0); MEAN CELL VOLUME 102.2 fl (80-96); MEAN PLT VOLUME 9.6 fl (7.5-11.1); PLATELET COUNT 76.8 10^3/uL (134-434); RDW 14.5 % (11.6-15.6); WHITE BLOOD COUNT 2.7 10^3/uL (4.0-10.8)
[2022-04-16 16:36] LABS: ALBUMIN 2.9 g/dl (3.4-5.0); BILIRUBIN,TOTAL 1.1 mg/dl (0.2-1); CALCIUM 8.1 mg/dl (8.5-10); CREATININE 0.9 mg/dl (0.55-1.3); MAGNESIUM 1.8 mg/dL (1.8-2.4)
[2022-04-16 17:18] LABS: MACROCYTOSIS 2+; PLATELET ESTIMATE DECREASED
[2022-04-16 18:45] LABS: N-TERMINAL BNP 110.6 pg/ml (5-125)
== END 2022-04-16 17:13 | disposition home or self-care (01) ==
LOC: FER 14:46
PROC: 3E0F7GC Introduction of Other Therapeutic Substance into Respiratory Tract, Via Natural or Artificial Opening (ICD-10-PCS; principal; 2022-04-16)
PROC: 3E033GC Introduction of Other Therapeutic Substance into Peripheral Vein, Percutaneous Approach (ICD-10-PCS; 2022-04-16)
DX: R05.1 Acute cough (principal); J20.9 Acute bronchitis, unspecified; J09.X2 Influenza due to identified novel influenza A virus with other respiratory manifestations
CPT/HCPCS: 0241U-QW; 36415; 71045-TC-FY; 80053; 83735; 83880; 84484; 85025; 99284-25

== ENCOUNTER 2022-04-18 22:47 | Emergency (ER) | payer OTHER ==
[2022-04-18 22:54] VITALS: RESP 18; BMI 40.7
[2022-04-18 23:16] VITALS: BP 158/83; PULSE 81; TEMP 98.5
== END 2022-04-18 23:30 | disposition home or self-care (01) ==
LOC: FER 22:47
DX: J09.X2 Influenza due to identified novel influenza A virus with other respiratory manifestations (principal)
CPT/HCPCS: 99283-25

== ENCOUNTER 2022-10-13 16:55 | Emergency (ER) | payer OTHER ==
[2022-10-13] MEDS ORDERED: KETOROLAC TROMETHAMINE 30 MG/1 ML VIAL IM ONE (17:17)
[2022-10-13 17:22] VITALS: BP 128/58; PULSE 75; RESP 18; TEMP 98.5
[2022-10-13] MEDS ORDERED: KETOROLAC TROMETHAMINE 30 MG/1 ML VIAL ONE (17:23)
[2022-10-13] MEDS ORDERED: CYCLOBENZAPRINE HCL 5 MG TABLET ONE (18:46)
[2022-10-13] MEDS ORDERED: CYCLOBENZAPRINE HCL 10 MG TABLET (FP) PO ONE (18:46)
== END 2022-10-13 18:52 | disposition home or self-care (01) ==
LOC: FER 16:55
PROC: 3E0233Z Introduction of Anti-inflammatory into Muscle, Percutaneous Approach (ICD-10-PCS; principal; 2022-10-13)
DX: M54.50 Low back pain, unspecified (principal); M46.1 Sacroiliitis, not elsewhere classified
CPT/HCPCS: 72100-TC-FY; 81003; 96372; 99284-25

== ENCOUNTER 2023-08-10 11:14 | Inpatient (IN) | payer OTHER ==
[2023-08-10 11:28] VITALS: BMI 31.1
[2023-08-10] MEDS ORDERED: ALBUTEROL SO4 2.5/IPRATROPIUM 0.5 INH SOL 3 ML VIAL.NEB. NEB ONE (11:34)
[2023-08-10] MEDS: ALBUTEROL SO4 2.5/IPRATROPIUM 0.5 INH SOL 3 ML VIAL.NEB. NEB SCH (11:50)
[2023-08-10 12:21] LABS: HEMATOCRIT 38.9 % (32.4-45.2); MCH 34.1 pg (25.7-33.7); MCHC 33.5 g/dl (32.0-36.0); MEAN CELL VOLUME 101.9 fl (80-96); MEAN PLT VOLUME 10.8 fl (7.5-11.1); PLATELET COUNT 109.3 10^3/uL (134-434); RBC 3.82 10^6/uL (3.60-5.2); RDW 15.2 % (11.6-15.6); WHITE BLOOD COUNT 3.2 10^3/uL (4.0-10.8)
[2023-08-10 12:37] LABS: ALBUMIN 3.4 g/dl (3.4-5.0); BILIRUBIN,TOTAL 1.1 mg/dl (0.2-1); CREATININE 0.6 mg/dl (0.6-1.3); POTASSIUM 3.1 mmol/L (3.5-5.1)
[2023-08-10 12:41] LABS: MACROCYTOSIS 1+; PLATELET ESTIMATE SLT DECREASE
[2023-08-10 12:53] LABS: CALCIUM 5.1 mg/dl (8.5-10.1)
[2023-08-10] MEDS ORDERED: CALCIUM GLUCONATE 10% - 1,000 MG/10 ML VIAL ONE (14:16)
[2023-08-10] MEDS ORDERED: POTASSIUM CHLORIDE TABS 20 MEQ TABLET.ER (FP) PO ONE (14:16)
[2023-08-10] MEDS: CALCIUM GLUCONATE 10% - 1,000 MG/10 ML VIAL IVPUSH ONE (14:32)
[2023-08-10] MEDS: POTASSIUM CHLORIDE TABS 20 MEQ TABLET.ER (FP) PO ONE (14:32)
[2023-08-10] MEDS ORDERED: MAGNESIUM 1GM/D5W - 1 GM/100 ML IVPB IVPB ONE (14:35)
[2023-08-10] MEDS: MAGNESIUM SULF 50% (8.12 MEQ/2 ML-1 GM VIAL) IVPB ONE (15:09)
[2023-08-10] MEDS ORDERED: ENOXAPARIN NA (PORCINE) 60 MG/0.6 ML DISP.SYRIN SQ ONE (15:50)
[2023-08-10] MEDS: ENOXAPARIN NA (PORCINE) 40 MG/0.4 ML DISP.SYRIN SQ ONE (15:55)
[2023-08-11] MEDS ORDERED: DOCUSATE SODIUM 100 MG CAPSULE (FP) PO PRN (00:25)
[2023-08-11] MEDS ORDERED: oxyCODONE HCL 5 MG TABLET PO PRN (00:25)
[2023-08-11] MEDS: ACETAMINOPHEN 325 MG TABLET (FP) PO PRN (03:16)
[2023-08-11 06:32] LABS: ALBUMIN 2.7 g/dl (3.4-5.0); ALK PHOS 230 U/L (45-117); ANION GAP 7 mmol/L (4-13); BILIRUBIN,TOTAL 0.9 mg/dL (0.2-1); BLOOD UREA NITROGEN 8.4 mg/dL (7-18); CALCIUM 5.2 mg/dL (8.5-10.1); CHLORIDE 110 mmol/L (98-107); CO2 28 mmol/L (21-32); CREATININE 0.6 mg/dL (0.55-1.3); GLUCOSE,RANDOM 101 mg/dL (74-106); MAGNESIUM 1.8 mg/dL (1.8-2.4); POTASSIUM 3.4 mmol/L (3.5-5.1); SGOT/AST 43 U/L (15-37); SGPT/ALT 46 U/L (13-61); SODIUM 145 mmol/L (136-145); TOT PROT 5.2 g/dl (6.4-8.2)
[2023-08-11] MEDS ORDERED: CALCIUM GLUCONATE 10% - 1,000 MG/10 ML VIAL IVPB ONE (06:45)
[2023-08-11 07:20] LABS: BASO % 1.1 % (0-2.0); EOS % 6.7 % (0-4.5); HEMATOCRIT 34.6 % (32.4-45.2); HEMOGLOBIN 11.9 GM/dL (10.7-15.3); LYMPH % 26.7 % (8-40); MCH 34.5 pg (25.7-33.7); MCHC 34.5 g/dl (32.0-36.0); MEAN CELL VOLUME 99.9 fl (80-96); MEAN PLT VOLUME 9.9 fl (7.5-11.1); MONO % 15.3 % (3.8-10.2); NEUT % 50.2 % (42.8-82.8); PLATELET COUNT 103 10^3/uL (134-434); RBC 3.46 M/mm3 (3.60-5.2); RDW 15.7 % (11.6-15.6); WHITE BLOOD COUNT 2.8 K/mm3 (4.0-10.0)
[2023-08-11] MEDS: AZITHROMYCIN 250 MG TABLET PO ONE (09:17)
[2023-08-11] MEDS: ENOXAPARIN NA (PORCINE) 40 MG/0.4 ML DISP.SYRIN SQ SCH (09:20)
[2023-08-11] MEDS: POTASSIUM CHLORIDE TABS 20 MEQ TABLET.ER (FP) PO SCH (09:21)
[2023-08-11] MEDS: DEXAMETHASONE 4 MG TABLET (FP) PO SCH (09:21)
[2023-08-11] MEDS: MAGNESIUM OXIDE 400 MG TABLET (FP) PO SCH (09:21)
[2023-08-11] MEDS: ASPIRIN COATED 81 MG TABLET.EC PO SCH (09:22)
[2023-08-11] MEDS: ACYCLOVIR 400 MG TABLET PO SCH (09:25)
[2023-08-11] MEDS ORDERED: LENALIDOMIDE 15 MG PO SCH (10:00)
[2023-08-11] MEDS: CALCIUM GLUCONATE 10% - 1,000 MG/10 ML VIAL IVPB ONE ×3 (10:32→18:12)
[2023-08-11 12:32] LABS: HEMATOCRIT 36.4 % (32.4-45.2); HEMOGLOBIN 12.3 GM/dL (10.7-15.3); MCH 34.1 pg (25.7-33.7); MCHC 33.7 g/dl (32.0-36.0); MEAN PLT VOLUME 10.3 fl (7.5-11.1); PLATELET COUNT 114 10^3/uL (134-434); RDW 16.2 % (11.6-15.6); WHITE BLOOD COUNT 3.2 K/mm3 (4.0-10.0)
[2023-08-11 13:03] LABS: CHLORIDE 109 mmol/L (98-107); POTASSIUM 3.6 mmol/L (3.5-5.1); SODIUM 143 mmol/L (136-145)
[2023-08-11 13:05] LABS: ALBUMIN 2.7 g/dl (3.4-5.0); ANION GAP 6 mmol/L (4-13); BLOOD UREA NITROGEN 6.8 mg/dL (7-18); CO2 28 mmol/L (21-32); GLUCOSE,RANDOM 99 mg/dL (74-106)
[2023-08-11 13:06] LABS: MAGNESIUM 1.6 mg/dL (1.8-2.4)
[2023-08-11 13:08] LABS: CREATININE 0.6 mg/dL (0.55-1.3); SGOT/AST 48 U/L (15-37); SGPT/ALT 46 U/L (13-61)
[2023-08-11 13:10] LABS: BILIRUBIN,TOTAL 0.8 mg/dL (0.2-1); TOT PROT 5.1 g/dl (6.4-8.2)
[2023-08-11 13:11] LABS: ALK PHOS 224 U/L (45-117)
[2023-08-11 13:22] LABS: CALCIUM 5.3 mg/dL (8.5-10.1)
[2023-08-11] MEDS: CALCIUM CARBONATE 650 MG TABLET PO SCH (16:04)
[2023-08-11] MEDS: CALCITRIOL 0.25 MCG CAPSULE (FP) PO SCH (16:04)
[2023-08-11] MEDS: MAGNESIUM 2GM/50ML STERILE WATER IVPB IVPB ONE (16:05)
[2023-08-12 07:42] LABS: HEMATOCRIT 37.2 % (32.4-45.2); HEMOGLOBIN 12.9 GM/dL (10.7-15.3); MCH 34.3 pg (25.7-33.7); MCHC 34.6 g/dl (32.0-36.0); MEAN CELL VOLUME 99.2 fl (80-96); MEAN PLT VOLUME 10.1 fl (7.5-11.1); PLATELET COUNT 113 10^3/uL (134-434); RBC 3.76 M/mm3 (3.60-5.2); RDW 15.8 % (11.6-15.6); WHITE BLOOD COUNT 2.5 K/mm3 (4.0-10.0)
[2023-08-12 08:01] LABS: ANION GAP 6 mmol/L (4-13); BLOOD UREA NITROGEN 10.4 mg/dL (7-18); CHLORIDE 111 mmol/L (98-107); CO2 28 mmol/L (21-32); GLUCOSE,RANDOM 154 mg/dL (74-106); MAGNESIUM 2.3 mg/dL (1.8-2.4); POTASSIUM 3.8 mmol/L (3.5-5.1); SODIUM 146 mmol/L (136-145)
[2023-08-12 08:02] LABS: ALBUMIN 2.9 g/dl (3.4-5.0)
[2023-08-12 08:04] LABS: SGPT/ALT 47 U/L (13-61)
[2023-08-12 08:05] LABS: CREATININE 0.5 mg/dL (0.55-1.3); SGOT/AST 37 U/L (15-37)
[2023-08-12 08:06] LABS: BILIRUBIN,TOTAL 0.6 mg/dL (0.2-1); TOT PROT 5.6 g/dl (6.4-8.2)
[2023-08-12 08:07] LABS: ALK PHOS 224 U/L (45-117)
[2023-08-12 08:12] LABS: CALCIUM 6.1 mg/dL (8.5-10.1)
[2023-08-12] MEDS: CALCIUM GLUCONATE 10% - 1,000 MG/10 ML VIAL IVPB ONE (09:13)
[2023-08-12] MEDS: AZITHROMYCIN 250 MG TABLET PO SCH (10:11)
[2023-08-12] MEDS: ALBUTEROL SO4 0.083% IH SOL 2.5 MG/3 ML VIAL.NEB. NEB PRN (12:00)
[2023-08-12] MEDS: CALCIUM GLUCONATE 10% - 1,000 MG/10 ML VIAL IVPB SCH (13:11)
[2023-08-12 17:36] LABS: EPI CELLS >36 /uL (0-25.1); HYALINE CASTS 3 /uL (0-3.1); PH,URINE 6.5 (5.0-8.0); URINE APPEARANCE CLEAR; URINE BACTERIA >9,000 /uL (0-1359); URINE BILIRUBIN NEGATIVE (NEGATIVE); URINE COLOR YELLOW; URINE GLUCOSE (UA) 2+ (NEGATIVE); URINE KETONE NEGATIVE (NEGATIVE); URINE LEUK ESTERASE NEGATIVE (NEGATIVE); URINE NITRITE POSITIVE (NEGATIVE); URINE PROTEIN NEGATIVE (NEGATIVE); URINE RBC 3 /uL (0-23.9); URINE WBC 47 /uL (0-25.8)
[2023-08-13 07:41] LABS: POTASSIUM 4.4 mmol/L (3.5-5.1)
[2023-08-13 07:51] LABS: BILIRUBIN,TOTAL 0.6 mg/dL (0.2-1); TOT PROT 5.6 g/dl (6.4-8.2)
[2023-08-13 07:52] LABS: BLOOD UREA NITROGEN 13.6 mg/dL (7-18)
[2023-08-13 07:54] LABS: MAGNESIUM 1.8 mg/dL (1.8-2.4)
[2023-08-13 07:56] LABS: CREATININE 0.5 mg/dL (0.55-1.3)
[2023-08-13 07:59] LABS: CALCIUM 7.1 mg/dL (8.5-10.1)
[2023-08-13 09:21] VITALS: RESP 19
[2023-08-13] MEDS: CALCIUM GLUCONATE IN NACL 1 GM/50 ML BAG IVPB ONE (11:18)
[2023-08-13] MEDS ORDERED: CALCIUM GLUC IN NACL, ISO-OSM 1 GM/50 ML BAG IVPB ONE (12:00)
[2023-08-13] MEDS: CALCIUM GLUCONATE 10% - 1,000 MG/10 ML VIAL IVPB SCH (12:39)
[2023-08-13] MEDS: CALCIUM GLUC IN NACL, ISO-OSM 1 GM/50 ML BAG IVPB ONE (14:29)
[2023-08-13 15:33] VITALS: BP 133/71; PULSE 65; TEMP 97.7
== END 2023-08-13 16:45 | disposition home or self-care (01) | DRG 641 ==
LOC: FER 11:14 → J4S 18:15
PROVIDERS: ADMIT Internal Medicine; ATTEND Internal Medicine
DX: E83.51 Hypocalcemia (principal); C90.00 Multiple myeloma not having achieved remission; E83.42 Hypomagnesemia; E87.6 Hypokalemia; E11.9 Type 2 diabetes mellitus without complications; J45.909 Unspecified asthma, uncomplicated; I10 Essential (primary) hypertension; E78.5 Hyperlipidemia, unspecified; J06.9 Acute upper respiratory infection, unspecified
CPT/HCPCS: 0241U-QW; 36415; 71045-TC-FY; 80048; 80053; 81003; 82310; 82436; 83735; 83970; 84133; 84300; 84443; 85025; 85027; 93005; 94640; 97116-GP; 97161-GP; 99285-25

== ENCOUNTER 2023-09-13 13:39 | Inpatient (IN) | payer OTHER ==
[2023-09-13] MEDS ORDERED: morphine SULFATE 4 MG/ML VIAL ONE ×2 (17:07→20:33)
[2023-09-13] MEDS ORDERED: ONDANSETRON 4 MG/2 ML VIAL ONE (17:07)
[2023-09-13] MEDS: morphine CARPU-JECT 4 MG/1 ML DISP.SYRIN IVPUSH ONE ×2 (17:15→20:51)
[2023-09-13] MEDS: LACTATED RINGERS SOLUTION 1,000 ML IV STA (17:15)
[2023-09-13] MEDS: ONDANSETRON 4 MG/2 ML VIAL IVPUSH ONE (17:16)
[2023-09-13 17:23] LABS: INR 1.29 (0.83-1.09); PROTHROMBIN TIME (PATIENT) 14.9 SEC (9.7-13.0)
[2023-09-13 17:26] LABS: HEMATOCRIT 38.6 % (32.4-45.2); HEMOGLOBIN 12.6 GM/dL (10.7-15.3); MCHC 32.8 g/dl (32.0-36.0); MEAN CELL VOLUME 100.8 fl (80-96); MEAN PLT VOLUME 10.1 fl (7.5-11.1); PLATELET COUNT 76 10^3/uL (134-434); RBC 3.83 M/mm3 (3.60-5.2); RDW 16.5 % (11.6-15.6); WHITE BLOOD COUNT 2.7 K/mm3 (4.0-10.0)
[2023-09-13 17:44] LABS: CHLORIDE 105 mmol/L (98-107); POTASSIUM 3.3 mmol/L (3.5-5.1); SODIUM 137 mmol/L (136-145)
[2023-09-13 17:46] LABS: ALBUMIN 3.2 g/dl (3.4-5.0); ANION GAP 5 mmol/L (4-13); BLOOD UREA NITROGEN 12.5 mg/dL (7-18); CO2 27 mmol/L (21-32); GLUCOSE,RANDOM 133 mg/dL (74-106)
[2023-09-13 17:49] LABS: CREATININE 0.7 mg/dL (0.55-1.3); SGOT/AST 84 U/L (15-37); SGPT/ALT 76 U/L (13-61)
[2023-09-13 17:51] LABS: BILIRUBIN,TOTAL 1.3 mg/dL (0.2-1); TOT PROT 5.6 g/dl (6.4-8.2)
[2023-09-13 17:52] LABS: ALK PHOS 268 U/L (45-117)
[2023-09-13 17:59] LABS: LACTIC ACID 2.8 mmol/L (0.4-2.0)
[2023-09-13 18:00] LABS: CALCIUM 6.9 mg/dL (8.5-10.1)
[2023-09-13 18:01] LABS: ANISOCYTOSIS 0; MACROCYTOSIS 1+
[2023-09-13] MEDS ORDERED: POTASSIUM CHLORIDE ORAL LIQUID 20 MEQ/15 ML ONE (18:29)
[2023-09-13] MEDS ORDERED: CALCIUM GLUC IN NACL, ISO-OSM 1 GM/50 ML BAG IVPB ONE (18:29)
[2023-09-13] MEDS ORDERED: MAGNESIUM 1GM/D5W - 1 GM/100 ML IVPB IVPB ONE (18:30)
[2023-09-13] MEDS: MAGNESIUM SULF 50% (8.12 MEQ/2 ML-1 GM VIAL) IVPB ONE (18:48)
[2023-09-13] MEDS: POTASSIUM CHLORIDE ORAL LIQUID 20 MEQ/15 ML PO ONE (18:48)
[2023-09-13] MEDS ORDERED: ALBUTEROL SO4 2.5/IPRATROPIUM 0.5 INH SOL 3 ML VIAL.NEB. NEB ONE (18:54)
[2023-09-13] MEDS: ALBUTEROL SO4 2.5/IPRATROPIUM 0.5 INH SOL 3 ML VIAL.NEB. NEB ONE (19:23)
[2023-09-13] MEDS ORDERED: CEFTRIAXONE 1 GM/50 ML BAG ONE (19:27)
[2023-09-13] MEDS ORDERED: DOXYCYCLINE HYCLATE 100 MG CAPSULE PO ONE (19:27)
[2023-09-13] MEDS: DOXYCYCLINE HYCLATE 100 MG CAPSULE PO ONE (19:33)
[2023-09-13] MEDS: SODIUM CHLORIDE 0.9% 500 ML INFUS.BAG IV ONE (20:20)
[2023-09-13] MEDS: CALCIUM GLUCONATE 10% - 1,000 MG/10 ML VIAL IVPB ONE (20:21)
[2023-09-13] MEDS ORDERED: TRIMETHOBENZAMIDE HCL 200MG/2ML INJ IM ONE (20:34)
[2023-09-13] MEDS: TRIMETHOBENZAMIDE HCL 200MG/2ML INJ IM ONE (20:52)
[2023-09-13] MEDS: CEFTRIAXONE 1,000 MG in DEXTROSE 5%-WATER - 50 ML IVPB ONE (20:59)
[2023-09-13 21:19] LABS: MAGNESIUM 1.5 mg/dL (1.8-2.4)
[2023-09-13] MEDS ORDERED: TRIMETHOBENZAMIDE HCL 200MG/2ML INJ IM PRN (21:33)
[2023-09-13 22:36] LABS: PHOSPHOROUS 3.1 mg/dL (2.5-4.9)
[2023-09-13] MEDS: ACYCLOVIR 400 MG TABLET PO SCH (23:24)
[2023-09-13] MEDS ORDERED: DOXYCYCLINE HYCLATE 100 MG VIAL ONE (23:25)
[2023-09-13] MEDS: CALCIUM CARBONATE 650 MG TABLET PO SCH (23:34)
[2023-09-13] MEDS: DOXYCYCLINE INJECTION 100 MG in DEXTROSE 5%-WATER 100 ML IVPB SCH (23:35)
[2023-09-14] MEDS: SODIUM CHLORIDE 1,000 ML IV SCH (00:41)
[2023-09-14] MEDS: MAGNESIUM 1GM/D5W - 1 GM/100 ML IVPB IVPB ONE (01:15)
[2023-09-14 01:27] LABS: CHLORIDE 108 mmol/L (98-107); POTASSIUM 3.9 mmol/L (3.5-5.1); SODIUM 136 mmol/L (136-145)
[2023-09-14 01:29] LABS: ALBUMIN 2.8 g/dl (3.4-5.0); ANION GAP 1 mmol/L (4-13); BLOOD UREA NITROGEN 10.7 mg/dL (7-18); CO2 27 mmol/L (21-32); GLUCOSE,RANDOM 165 mg/dL (74-106); MAGNESIUM 1.7 mg/dL (1.8-2.4)
[2023-09-14 01:32] LABS: PHOSPHOROUS 2.3 mg/dL (2.5-4.9); SGPT/ALT 71 U/L (13-61)
[2023-09-14 01:33] LABS: CREATININE 0.6 mg/dL (0.55-1.3); SGOT/AST 81 U/L (15-37)
[2023-09-14 01:34] LABS: BILIRUBIN,TOTAL 0.9 mg/dL (0.2-1); TOT PROT 5.1 g/dl (6.4-8.2)
[2023-09-14] MEDS ORDERED: oxyCODONE HCL 5 MG TABLET ONE ×2 (01:50→10:27)
[2023-09-14] MEDS: oxyCODONE HCL 5 MG TABLET PO PRN (02:02)
[2023-09-14 02:33] LABS: ALK PHOS 237 U/L (45-117); CALCIUM 6.5 mg/dL (8.5-10.1); LACTIC ACID 3.2 mmol/L (0.4-2.0)
[2023-09-14 02:43] LABS: URINE APPEARANCE CLEAR; URINE BILIRUBIN NEGATIVE (NEGATIVE); URINE COLOR YELLOW; URINE GLUCOSE (UA) NEGATIVE (NEGATIVE); URINE KETONE NEGATIVE (NEGATIVE); URINE LEUK ESTERASE NEGATIVE (NEGATIVE); URINE NITRITE NEGATIVE (NEGATIVE); URINE PROTEIN NEGATIVE (NEGATIVE)
[2023-09-14] MEDS ORDERED: PIPERACILLIN/TAZOB 4.5 GM 4.5 GM/100 ML BAG IVPB ONE ×2 (03:03→09:12)
[2023-09-14] MEDS: PIPERACILLIN/TAZOB 4.5 GM 4.5 GM in DEXTROSE 5%-WATER 100 ML IVPB SCH (03:09)
[2023-09-14] MEDS ORDERED: ACETAMINOPHEN 325 MG TABLET (FP) ONE ×2 (05:03→15:02)
[2023-09-14] MEDS: ACETAMINOPHEN 325 MG TABLET (FP) PO PRN (05:06)
[2023-09-14 06:38] LABS: BASO % 1.2 % (0-2.0); HEMATOCRIT 34.2 % (32.4-45.2); HEMOGLOBIN 11.4 GM/dL (10.7-15.3); LYMPH % 37.6 % (8-40); MCH 33.6 pg (25.7-33.7); MCHC 33.3 g/dl (32.0-36.0); MEAN CELL VOLUME 100.8 fl (80-96); MEAN PLT VOLUME 10.2 fl (7.5-11.1); MONO % 13.5 % (3.8-10.2); NEUT % 47.7 % (42.8-82.8); PLATELET COUNT 71 10^3/uL (134-434); RBC 3.39 M/mm3 (3.60-5.2); RDW 16.6 % (11.6-15.6); WHITE BLOOD COUNT 3.1 K/mm3 (4.0-10.0)
[2023-09-14] MEDS ORDERED: ACYCLOVIR 200 MG CAPSULE ONE (09:11)
[2023-09-14] MEDS ORDERED: DOXYCYCLINE HYCLATE 100 MG VIAL ONE (09:12)
[2023-09-14] MEDS ORDERED: ENOXAPARIN NA (PORCINE) 40 MG/0.4 ML DISP.SYRIN SQ ONE (09:12)
[2023-09-14] MEDS: ENOXAPARIN NA (PORCINE) 40 MG/0.4 ML DISP.SYRIN SQ SCH (09:29)
[2023-09-14] MEDS ORDERED: CEFTRIAXONE 1 GM in DEXTROSE 5%-WATER - 50 ML IVPB SCH (10:00)
[2023-09-14] MEDS ORDERED: ASPIRIN COATED 81 MG TABLET.EC ONE (10:15)
[2023-09-14] MEDS: ASPIRIN COATED 81 MG TABLET.EC PO SCH (10:16)
[2023-09-14] MEDS ORDERED: CEFTRIAXONE 1 GM/50 ML BAG ONE (12:41)
[2023-09-14] MEDS: CEFTRIAXONE 1 GM in DEXTROSE 5%-WATER - 50 ML IVPB SCH (12:49)
[2023-09-14 13:44] LABS: CHLORIDE 112 mmol/L (98-107); POTASSIUM 3.6 mmol/L (3.5-5.1); SODIUM 141 mmol/L (136-145)
[2023-09-14 13:47] LABS: ALBUMIN 2.6 g/dl (3.4-5.0); ANION GAP 2 mmol/L (4-13); CO2 27 mmol/L (21-32); GLUCOSE,RANDOM 136 mg/dL (74-106)
[2023-09-14 13:48] LABS: BLOOD UREA NITROGEN 8.3 mg/dL (7-18)
[2023-09-14 13:49] LABS: SGPT/ALT 61 U/L (13-61)
[2023-09-14 13:51] LABS: CREATININE 0.6 mg/dL (0.55-1.3); SGOT/AST 62 U/L (15-37)
[2023-09-14 13:52] LABS: BILIRUBIN,TOTAL 0.8 mg/dL (0.2-1); TOT PROT 4.8 g/dl (6.4-8.2)
[2023-09-14 13:53] LABS: ALK PHOS 221 U/L (45-117)
[2023-09-14 13:57] LABS: CALCIUM 6.3 mg/dL (8.5-10.1)
[2023-09-14] MEDS ORDERED: VANCOMYCIN 1 GRAM (PRE-DOCKED) 1,000 MG/250 ML BAG IVPB ONE (17:12)
[2023-09-14] MEDS: VANCOMYCIN 1 GRAM (PRE-DOCKED) 1,000 MG/250 ML BAG IVPB ONE (17:17)
[2023-09-15] MEDS ORDERED: PIPERACILLIN/TAZOB 4.5 GM 4.5 GM in DEXTROSE 5%-WATER 100 ML IVPB SCH (03:00)
[2023-09-15] MEDS ORDERED: oxyCODONE HCL 5 MG TABLET ONE ×2 (05:04→08:40)
[2023-09-15 07:55] LABS: HEMATOCRIT 34.7 % (32.4-45.2); HEMOGLOBIN 11.7 GM/dL (10.7-15.3); MCH 34.2 pg (25.7-33.7); MCHC 33.7 g/dl (32.0-36.0); MEAN CELL VOLUME 101.3 fl (80-96); MEAN PLT VOLUME 10.7 fl (7.5-11.1); PLATELET COUNT 73 10^3/uL (134-434); RBC 3.43 M/mm3 (3.60-5.2); RDW 16.6 % (11.6-15.6); WHITE BLOOD COUNT 2.1 K/mm3 (4.0-10.0)
[2023-09-15 08:19] LABS: CHLORIDE 112 mmol/L (98-107); POTASSIUM 3.4 mmol/L (3.5-5.1); SODIUM 143 mmol/L (136-145)
[2023-09-15 08:29] LABS: ALBUMIN 2.7 g/dl (3.4-5.0); ANION GAP 2 mmol/L (4-13); CO2 29 mmol/L (21-32); GLUCOSE,RANDOM 109 mg/dL (74-106); MAGNESIUM 1.9 mg/dL (1.8-2.4)
[2023-09-15 08:33] LABS: CREATININE 0.5 mg/dL (0.55-1.3); PHOSPHOROUS 1.9 mg/dL (2.5-4.9); SGOT/AST 55 U/L (15-37); SGPT/ALT 56 U/L (13-61)
[2023-09-15 08:35] LABS: ALK PHOS 216 U/L (45-117); BILIRUBIN,TOTAL 0.9 mg/dL (0.2-1); TOT PROT 4.9 g/dl (6.4-8.2)
[2023-09-15 08:39] LABS: CALCIUM 6.7 mg/dL (8.5-10.1)
[2023-09-15] MEDS ORDERED: ASPIRIN COATED 81 MG TABLET.EC ONE (09:10)
[2023-09-15] MEDS ORDERED: ENOXAPARIN NA (PORCINE) 40 MG/0.4 ML DISP.SYRIN SQ ONE (09:10)
[2023-09-15] MEDS ORDERED: ACYCLOVIR 200 MG CAPSULE ONE (09:10)
[2023-09-15] MEDS: NAPH,MB-DB/K PH,MBDB POWDER PACKET PO ONE (09:11)
[2023-09-15] MEDS: POTASSIUM CHLORIDE ORAL LIQUID 20 MEQ/15 ML PO ONE ×2 (09:11→13:13)
[2023-09-15] MEDS ORDERED: CEFTRIAXONE 1 GM/50 ML BAG ONE (09:11)
[2023-09-15] MEDS: LIDOCAINE 4% PATCH TP SCH (10:07)
[2023-09-15] MEDS ORDERED: LIDOCAINE 4% PATCH TP ONE (10:10)
[2023-09-15] MEDS ORDERED: POTASSIUM CHLORIDE ORAL LIQUID 20 MEQ/15 ML ONE (13:12)
[2023-09-15] MEDS ORDERED: CALCIUM GLUC IN NACL, ISO-OSM 1 GM/50 ML BAG IVPB ONE (13:12)
[2023-09-15] MEDS: CALCIUM GLUCONATE 10% - 1,000 MG/10 ML VIAL IVPB ONE (13:13)
[2023-09-15 17:19] VITALS: BMI 34.2
[2023-09-15] MEDS: CALCIUM GLUCONATE 10% - 1,000 MG/10 ML VIAL IVPUSH ONE (18:19)
[2023-09-15] MEDS: SENNOSIDES 8.8 MG/5 ML SYRUP PO SCH (22:29)
[2023-09-15] MEDS: LIDOCAINE PATCH REMOVAL MC SCH (22:29)
[2023-09-16 08:27] LABS: HEMATOCRIT 40.3 % (32.4-45.2); HEMOGLOBIN 13.4 GM/dL (10.7-15.3); MCH 33.9 pg (25.7-33.7); MCHC 33.4 g/dl (32.0-36.0); MEAN CELL VOLUME 101.5 fl (80-96); MEAN PLT VOLUME 10.3 fl (7.5-11.1); PLATELET COUNT 116 10^3/uL (134-434); RBC 3.97 M/mm3 (3.60-5.2); RDW 16.8 % (11.6-15.6)
[2023-09-16 08:32] LABS: POTASSIUM 3.7 mmol/L (3.5-5.1)
[2023-09-16 08:39] LABS: ALBUMIN 3.1 g/dl (3.4-5.0); MAGNESIUM 2.1 mg/dL (1.8-2.4)
[2023-09-16 08:42] LABS: CREATININE 0.5 mg/dL (0.55-1.3); PHOSPHOROUS 2.4 mg/dL (2.5-4.9)
[2023-09-16 08:43] LABS: BILIRUBIN,TOTAL 1.2 mg/dL (0.2-1); TOT PROT 5.9 g/dl (6.4-8.2)
[2023-09-16 08:57] LABS: CALCIUM 8.3 mg/dL (8.5-10.1)
[2023-09-16] MEDS: NAPH,MB-DB/K PH,MBDB POWDER PACKET PO ONE (10:11)
[2023-09-16] MEDS ORDERED: guaiFENesin 200 MG/10 ML 10 ML UNIT-DOSE CUPS PO PRN (16:20)
[2023-09-16] MEDS: CODEINE SO4 30 MG TABLET PO PRN (19:03)
[2023-09-17 06:08] LABS: KAPPA/LAMBDA RATIO, UR 5.46 (1.83-14.26)
[2023-09-17 06:24] VITALS: RESP 18
[2023-09-17 08:41] LABS: HEMATOCRIT 36.3 % (32.4-45.2); HEMOGLOBIN 12.1 GM/dL (10.7-15.3); MCH 33.5 pg (25.7-33.7); MCHC 33.4 g/dl (32.0-36.0); MEAN CELL VOLUME 100.4 fl (80-96); MEAN PLT VOLUME 10.3 fl (7.5-11.1); PLATELET COUNT 92 10^3/uL (134-434); RBC 3.61 M/mm3 (3.60-5.2); RDW 16.4 % (11.6-15.6)
[2023-09-17 08:59] LABS: POTASSIUM 3.7 mmol/L (3.5-5.1)
[2023-09-17 09:03] LABS: CALCIUM 7.9 mg/dL (8.5-10.1)
[2023-09-17 09:04] LABS: ALBUMIN 2.8 g/dl (3.4-5.0); BLOOD UREA NITROGEN 10.2 mg/dL (7-18)
[2023-09-17 09:07] LABS: BILIRUBIN,TOTAL 0.9 mg/dL (0.2-1); CREATININE 0.5 mg/dL (0.55-1.3); PHOSPHOROUS 3.2 mg/dL (2.5-4.9)
[2023-09-17 09:08] LABS: TOT PROT 5.4 g/dl (6.4-8.2)
[2023-09-17] MEDS: NAPH,MB-DB/K PH,MBDB POWDER PACKET PO ONE (09:15)
[2023-09-17 15:10] LABS: TOTAL PROTEIN, URINE <4.0 mg/dL (Not Estab.)
[2023-09-18 07:43] LABS: HEMATOCRIT 40.6 % (32.4-45.2); HEMOGLOBIN 13.4 GM/dL (10.7-15.3); MCH 33.4 pg (25.7-33.7); MCHC 32.9 g/dl (32.0-36.0); MEAN CELL VOLUME 101.8 fl (80-96); MEAN PLT VOLUME 9.7 fl (7.5-11.1); PLATELET COUNT 106 10^3/uL (134-434); RBC 3.99 M/mm3 (3.60-5.2); RDW 16.6 % (11.6-15.6); WHITE BLOOD COUNT 2.8 K/mm3 (4.0-10.0)
[2023-09-18 08:13] LABS: POTASSIUM 3.6 mmol/L (3.5-5.1)
[2023-09-18 08:17] LABS: BLOOD UREA NITROGEN 10.2 mg/dL (7-18); MAGNESIUM 1.8 mg/dL (1.8-2.4)
[2023-09-18 08:21] LABS: BILIRUBIN,TOTAL 0.8 mg/dL (0.2-1); CREATININE 0.6 mg/dL (0.55-1.3); TOT PROT 5.6 g/dl (6.4-8.2)
[2023-09-19 07:34] LABS: HEMATOCRIT 38.4 % (32.4-45.2); HEMOGLOBIN 12.8 GM/dL (10.7-15.3); MCH 33.6 pg (25.7-33.7); MCHC 33.3 g/dl (32.0-36.0); MEAN CELL VOLUME 100.9 fl (80-96); MEAN PLT VOLUME 9.4 fl (7.5-11.1); RBC 3.81 M/mm3 (3.60-5.2); RDW 16.3 % (11.6-15.6); WHITE BLOOD COUNT 2.4 K/mm3 (4.0-10.0)
[2023-09-19 08:03] LABS: PLATELET COUNT 33 10^3/uL (134-434)
[2023-09-19 08:34] LABS: POTASSIUM 4.1 mmol/L (3.5-5.1)
[2023-09-19 08:38] LABS: ALBUMIN 2.8 g/dl (3.4-5.0); BLOOD UREA NITROGEN 10.2 mg/dL (7-18); CALCIUM 7.9 mg/dL (8.5-10.1); MAGNESIUM 1.8 mg/dL (1.8-2.4)
[2023-09-19 08:41] LABS: CREATININE 0.5 mg/dL (0.55-1.3)
[2023-09-19 08:42] LABS: TOT PROT 5.4 g/dl (6.4-8.2)
[2023-09-19 08:43] LABS: BILIRUBIN,TOTAL 0.9 mg/dL (0.2-1)
[2023-09-19 09:52] LABS: BASO % 2.5 % (0-2.0); EOS % 2.7 % (0-4.5); HEMATOCRIT 39.5 % (32.4-45.2); LYMPH % 50.1 % (8-40); MCH 33.1 pg (25.7-33.7); MCHC 32.8 g/dl (32.0-36.0); MEAN CELL VOLUME 100.7 fl (80-96); MONO % 7.8 % (3.8-10.2); NEUT % 36.9 % (42.8-82.8); PLATELET COUNT 108 10^3/uL (134-434); RBC 3.93 M/mm3 (3.60-5.2); RDW 16.6 % (11.6-15.6); WHITE BLOOD COUNT 3.1 K/mm3 (4.0-10.0)
[2023-09-19 10:09] LABS: ANISOCYTOSIS 0; MACROCYTOSIS 0
[2023-09-19 10:42] VITALS: TEMP 98.2
[2023-09-19 14:37] VITALS: BP 125/65; PULSE 81
[2023-09-19] MEDS ORDERED: CEFUROXIME AXETIL 500 MG TABLET PO SCH (22:00)
== END 2023-09-19 17:00 | disposition home health service (06) | DRG 871 ==
LOC: JER 13:39 → JERBED 21:02 → J8W 09-15 15:17
PROVIDERS: ADMIT Internal Medicine; ATTEND Internal Medicine
DX: A40.8 Other streptococcal sepsis (principal); J13 Pneumonia due to Streptococcus pneumoniae; C90.00 Multiple myeloma not having achieved remission; D84.9 Immunodeficiency, unspecified; E87.20 Acidosis, unspecified; R65.20 Severe sepsis without septic shock; I10 Essential (primary) hypertension; D69.6 Thrombocytopenia, unspecified; D70.9 Neutropenia, unspecified; E83.42 Hypomagnesemia; E11.42 Type 2 diabetes mellitus with diabetic polyneuropathy; E83.39 Other disorders of phosphorus metabolism; K21.9 Gastro-esophageal reflux disease without esophagitis; E83.51 Hypocalcemia; E87.6 Hypokalemia
CPT/HCPCS: 0241U-QW; 36415; 71250-TC; 72128-TC; 72131-TC; 74176-TC; 80053; 81003; 82248; 82306; 83605; 83690; 83735; 83883; 84100; 84155; 84156; 84157; 84165; 85025; 85027; 85610; 85730; 87040; 87070; 87081; 87086; 87205; 87899; 93005; 93010; 94010; 97116-GP; 97161-GP; 99285-25